=== PATIENT | female | born 1935 | race Caucasian/White ===

== ENCOUNTER → 2019-11-27 11:04 | Outpatient (CLI) | payer MEDICARE, SELFPAY ==
--- NOTE | ~2019-11-27 | MM_ITS ---
EXAMINATION: MM screening grant BI w arleen HISTORY: Screening mammogram TECHNIQUE: Craniocaudal and mediolateral oblique 3-D tomosynthesis images were obtained and synthetic 2-D images were generated. CAD analysis was submitted and interpreted. COMPARISON: 10/30/2018, 10/02/2017, 08/02/2016 bilateral digital screening mammogram examinations BREAST PARENCHYMAL COMPOSITION: There are scattered areas of fibroglandular density. FINDINGS: There is no evidence of suspicious mass, calcification, or architectural distortion to sugg est malignancy in either breast. There has been no suspicious interval change. IMPRESSION: 1. No mammographic evidence of malignancy. 2. Recommend routine screening mammography in one year. BI-RADS Category 1: Negative Reviewed, dictated and finalized at location A. BALANCER
== END ==
PROVIDERS: PCP Internal Medicine; Visit Provider Obstetrics & Gynecology Gynecology
DX: Z12.31 Encounter for screening mammogram for malignant neoplasm of breast (principal)
CPT/HCPCS: 77063; 77067

== ENCOUNTER → 2020-05-10 12:10 | Outpatient (CLI) | payer MEDICARE, SELFPAY ==
--- NOTE | ~2020-05-10 | XR_ITS ---
EXAMINATION: XR knee RT 3V DATE: 05/10/2020 12:35 INDICATION: Right knee pain. TECHNIQUE: 3 views of right knee were obtained. COMPARISON: Right knee radiographs 02/09/2013 FINDINGS: Bone alignment is normal. No fracture. There is moderate osteoarthritis of medial compartme nt and mild osteoarthritis of patellofemoral compartment. No knee joint effusion. IMPRESSION: 1. Moderate right knee osteoarthritis. Reviewed, dictated and finalized at location A.
== END ==
PROVIDERS: Visit Provider Nurse Practitioner
DX: M17.11 Unilateral primary osteoarthritis, right knee (principal)
CPT/HCPCS: 73562

== ENCOUNTER → 2020-06-09 11:19 | Outpatient (CLI) | payer MEDICARE, SELFPAY ==
--- NOTE | ~2020-06-09 | XR_ITS ---
EXAMINATION: XR chest 2V DATE: 06/09/2020 11:54 INDICATION: Pleurodynia. TECHNIQUE: Frontal and lateral views of the chest were obtained. COMPARISON: Chest 2 views 09/02/2018, CT abdomen and pelvis 07/13/2019 FINDINGS: There is no pneumonia, pleural effusion, or pneumothorax. The heart size is normal. There i s mild pectus excavatum. IMPRESSION: 1. No acute cardiopulmonary disease. Reviewed, dictated and finalized at location B.
== END ==
PROVIDERS: PCP Internal Medicine; Visit Provider Internal Medicine
DX: R07.81 Pleurodynia (principal)
CPT/HCPCS: 71046

== ENCOUNTER → 2021-04-04 10:37 | Outpatient (CLI) | payer MEDICARE, SELFPAY ==
--- NOTE | ~2021-04-04 | MM_ITS ---
EXAMINATION: MM screening grant BI w arleen HISTORY: Screening mammogram TECHNIQUE: Craniocaudal and mediolateral oblique 3-D tomosynthesis images were obtained and synthetic 2-D images were generated. CAD analysis was submitted and interpreted. COMPARISON: , 10/30/2018, 10/02/2017 bilateral digital screening mammogram examinations BREAST PARENCHYMAL COMPOSITION: There are scattered areas of fibroglandular density. FINDINGS: There is no evidence of suspicious mass, calcification, or architectural distortion to sugg est malignancy in either breast. There has been no suspicious interval change. IMPRESSION: 1. No mammographic evidence of malignancy. 2. Recommend routine screening mammography in one year. BI-RADS Category 1: Negative Reviewed, dictated and finalized at location A.
== END ==
PROVIDERS: PCP Internal Medicine; Visit Provider Obstetrics & Gynecology Gynecology
DX: Z12.31 Encounter for screening mammogram for malignant neoplasm of breast (principal)
CPT/HCPCS: 77063; 77067

== ENCOUNTER 2021-06-30 13:44 | Outpatient (CLI) | payer MEDICARE, SELFPAY ==
--- NOTE | 2021-06-30 14:01 | ECHO_ITS ---
Patient Info Name: Silva Castro Age: 85 years : 1935 Gender: Female Ht: 57 in Wt: 160 lbs BSA: 1.75 m2 HR: 68 bpm BP: 137 / 79 mmHg Heart Rhythm: Atrial Flutter Exam Date: 06/30/2021 2:47 PM Exam Location: [facility] Patient Status: Outpatient Admit Date: 06/30/2021 Staff Ordering Physician: Sidney Barraza DO Can Coverer: Cindy Le RDCS Attending Provider: Sidney Barraza DO Referring Physician: Madi BAUM; Exam Type: CA echo doppler color flow Study Info Indications I48.92 - UNSPECIFIED ATRIAL FLUTTER Complete two-dimensional, color flow and Doppler transthoracic echocardiogram is performed. Summary 1. Complete two-dimensional, color flow and Doppler transthoracic echocardiogram is performed. 2. Left ventricular chamber dimension is normal. 3. Left ventricular systolic function is normal, estimated at 60-65%. 4. The left ventricular diastolic function is normal. 5. E/e' 7 is not elevated. 6. Left atrial chamber dimension is moderately enlarged. 7. Right atrial chamber dimension is moderately enlarged. 8. There is mild aortic valve sclerosis. 9. There is mild mitral valve regurgitation. 10. There is mild to moderate tricuspid valve regurgitation. 11. No pulmonary hypertension, estimated pulmonary arterial systolic pressure is 31 mmHg. Left Ventricle E/e' 7 is not elevated. Left ventricular chamber dimension is normal. Left ventricular systolic function is normal, estimated at 60-65%. The left ventricular diastolic function is normal. Right Ventricle Right ventricular chamber dimension is normal. Right ventricular systolic function is normal. Left Atria Left atrial chamber dimension is moderately enlarged. Right Atria Right atrial chamber dimension is moderately enlarged. Aortic Valve The aortic valve is trileaflet. There is mild aortic valve sclerosis. There is no aortic valve stenosis. There is no aortic valve regurgitation. Pulmonic Valve There is no pulmonic regurgitation. Mitral Valve There is no mitral valve stenosis. There is mild mitral valve regurgitation. Tricuspid Valve There is mild to moderate tricuspid valve regurgitation. No pulmonary hypertension, estimated pulmonary arterial systolic pressure is 31 mmHg. Pericardium/Pleural There is no pericardial effusion. Inferior Vena Cava Normal inferior vena cava with >50% collapse upon inspiration consistent with normal right atrial pressure, 5 mmHg. Aorta The aortic root size at the sinus of Valsalva is normal. Left Ventricular Outflow Tract Name Value Normal LVOT 2D LVOT Diameter 1.9 cm LVOT Doppler LVOT Peak Gradient 1 mmHg LVOT Mean Gradient 1 mmHg LVOT VTI 14 cm LVOT VTI/AV VTI Ratio 0.6 LVOT Stroke Volume 41 ml Pulmonic Valve Name Value Normal RVOT
== END 2021-06-30 13:45 | disposition home or self-care (01) ==
LOC: ANHCARD 13:45
PROVIDERS: PCP Internal Medicine; Visit Provider Internal Medicine Cardiovascular Disease
DX: I48.92 Unspecified atrial flutter (principal); I34.0 Nonrheumatic mitral (valve) insufficiency; I35.1 Nonrheumatic aortic (valve) insufficiency; I36.1 Nonrheumatic tricuspid (valve) insufficiency
CPT/HCPCS: 93306

== ENCOUNTER 2021-09-27 13:44 | Emergency (ER) | payer MEDICARE, SELFPAY ==
--- NOTE | 2021-09-27 14:08 | ED.SKABFB ---
HPI - Skin/Abscess/Foreign Bdy General Chief complaint: Skin/Abscess/Foreign Body Stated complaint: pos skin abcess Time Seen by Provider: 09/27/21 13:59 Source: patient and RN notes reviewed Mode of arrival: ambulatory Limitations: no limitations History of Present Illness HPI narrative: Patient presents today complaining of a lump that she noticed on her rear end . She noticed the area 2 days ago when she was wiping after using the restroom. Denies pain, itching, blood or drainage. She has tried no interventions prior to arrival. She called her [employer], who states they do not work in this area. She has called her PCP who has not returned her phone call. States she has had something similar in the past and was given a course of antibiotics for it. MD complaint: abscess/boil Related Data Home Medications Medication Instructions Recorded Confirmed Calcium 600 + D(3) 08/22/19 09/12/21 ergocalciferol (vitamin D2) unit 08/22/19 09/12/21 magnesium 30 mg tablet 30 mg PO DAILY 06/12/21 09/12/21 Allergies Allergy/AdvReac Type Severity Reaction Status Date / Time Sulfa (Sulfonamide Allergy Unknown Unknown Verified 09/12/21 10:23 Antibiotics) tobramycin Allergy Unknown Unknown Verified 09/12/21 10:23 Review of Systems Review of Systems: CONSTITUTIONAL: Denies body aches, fever, chills, or sweats. EYES: Denies visual changes, redness, or discharge. ENT: Denies rhinorrhea, congestion, sore throat, or otalgia. CARDIOVASCULAR: Denies chest pain, palpitations, or edema. RESPIRATORY: Denies cough or dyspnea. GASTROINTESTINAL: Denies abdominal pain, nausea, vomiting, or diarrhea. GENITOURINARY: Denies dysuria or hematuria. SKIN: Denies rash, itching, or wounds. Possible abscess MUSCULOSKELETAL: Denies back pain, joint pain, or myalgia. NEUROLOGIC: Denies headache, numbness, tingling, or weakness. PSYCH: Denies depression or anxiety. [facility] Past Medical History Medical History Depression Diverticulitis Herniated disc Hypertension Urinary tract infection Surgical History Surgical History H/O hernia repair 1995 H/O: hysterectomy 1994 Family History Family History Sibling Family history of diabetes mellitus in first degree relative Family history of coronary artery disease Family history of malignant neoplasm of breast in first degree relative Family history of malignant neoplasm of kidney Patient's brother is Father Family history of coronary artery disease Mother Family history of coronary artery disease Social History Social History Smoking packs per day: 0.5 Smoking cigarettes per day: 10.0 Years smoked: 70 Smoking pack-years: 35.00 Smoking status: Never smoker Tobacco type: cigarettes Second hand tobacco smoke exposure: Yes Alcohol intake: never Comments At time of signature, I have reviewed and agree with nursing past medical, surgical, social and family history unless otherwise noted. Please see nursing chart for further information. There is no relevant family history pertinent to the presenting complaint Exam Narrative: GENERAL: Well-appearing, well-nourished, and in no acute distress. HEAD: Normocephalic, atraumatic. EYES: EOMI. No redness or drainage. Conjunctivae normal. ENT: Mucous membranes pink and moist. NECK: Normal AROM. CHEST: No respiratory distress. EXTREMITIES: Normal range of motion. No edema. SKIN: Warm, dry, no rash. Capillary refill normal. Subcentimeter firm round area to the left of the anus. No erythema, induration, tenderness with palpation, fluctuance noted. Patient had slight tenderness when I pinched the area between my fingers to measure it. NEURO: No focal deficits. Alert and oriented x3.
[2021-09-27 14:14] VITALS: BP 130/67; PULSE 82; RESP 16; TEMP 36.2; O2SAT 99
== END 2021-09-27 14:20 | disposition home or self-care (01) ==
PROVIDERS: Emergency Provider Nurse Practitioner; PCP Internal Medicine
DX: L02.31 Cutaneous abscess of buttock (principal); I10 Essential (primary) hypertension
CPT/HCPCS: 99213; G0463

== ENCOUNTER 2021-11-13 11:02 | Emergency (ER) | payer MEDICARE, SELFPAY ==
[2021-11-13 11:12] VITALS: BP 131/78; PULSE 86; RESP 16; TEMP 35.9; O2SAT 100
--- NOTE | 2021-11-13 11:13 | ED.FEMALEGU ---
HPI - Female Genitourinary General Chief complaint: Urogenital-Female Stated complaint: Urinary pain Time Seen by Provider: 11/13/21 11:25 Source: patient and RN notes reviewed Mode of arrival: ambulatory Limitations: no limitations History of Present Illness HPI Narrative: 86-year-old female presents concern for suprapubic pressure that started yesterday. She denies back pain, fever, nausea, vomiting, constipation. She reports normal bowel movement today. She denies body aches, chills and sweats. MD elicited complaint: UTI Related Data Home Medications Medication Instructions Recorded Confirmed Calcium 600 + D(3) 1 tab-cap PO DAILY 08/22/19 11/13/21 ergocalciferol (vitamin D2) 50,000 unit PO DAILY 08/22/19 11/13/21 magnesium 30 mg tablet 30 mg PO DAILY 06/12/21 11/13/21 rivaroxaban [Xarelto] 15 mg PO DAILY 11/13/21 11/13/21 Allergies Allergy/AdvReac Type Severity Reaction Status Date / Time Sulfa (Sulfonamide Allergy Unknown Unknown Verified 11/13/21 11:16 Antibiotics) tobramycin Allergy Unknown Unknown Verified 11/13/21 11:16 Review of Systems Review of Systems: CONSTITUTIONAL: Denies malaise, chills, sweats, or fever. CARDIOVASCULAR: Denies chest pain, palpitations, or edema. RESPIRATORY: Denies cough or dyspnea. GASTROINTESTINAL: Denies abdominal pain, nausea, vomiting, diarrhea GENITOURINARY: Reports suprapubic pressure. Denies dysuria, frequency, urgency, flank pain or hematuria. SKIN: Denies rash or itching. MUSCULOSKELETAL: Denies back pain or myalgia. All systems reviewed & are unremarkable except as noted in HPI and below [facility] Past Medical History Medical History Depression Diverticulitis Herniated disc Hypertension Urinary tract infection Surgical History Surgical History H/O hernia repair 1995 H/O: hysterectomy 1994 Family History Family History Sibling Family history of diabetes mellitus in first degree relative Family history of coronary artery disease Family history of malignant neoplasm of breast in first degree relative Family history of malignant neoplasm of kidney Patient's brother is Father Family history of coronary artery disease Mother Family history of coronary artery disease Social History Social History (Updated 10/31/21 @ 10:14 by Marleni Shetty) Smoking packs per day: 0.5 Smoking cigarettes per day: 10.0 Years smoked: 70 Smoking pack-years: 35.00 Smoking status: Current some day smoker Tobacco type: cigarettes Second hand tobacco smoke exposure: Yes Alcohol intake: never Comments At time of signature, agree with nursing past medical, surgical, social and family history. There is no relevant family history pertinent to the presenting complaint Exam Narrative: GENERAL: Well-appearing, well-nourished, and in no acute distress. HEAD: Normocephalic. EYES: PERRLA, conjunctivae clear. NECK: Supple. No lymphadenopathy CHEST: Clear to auscultation. No respiratory distress. HEART: Regular rate and rhythm. ABDOMEN: Soft, nontender upon palpation, nondistended, normal active bowel sounds, no palpable or pulsatile masses, no guarding. No CVA tenderness SKIN: Warm, dry, no rash. NEURO: Alert and oriented x3. PSYCH: Normal mood and affect Course Course Emergency Course: Patient is aware of diagnosis, understands and agrees to treatment plan. Anticipatory guidance given. Patient agrees to follow-up as directed and is aware of reasons to seek care at the emergency department. Portions of this record may have been created with voice recognition software Level of Care: Express Care Visit Vital Signs Vital signs: Reviewed. MDM - Female Genitourinary MDM Narrative Medical decision making narrative: Exam findings and UA show no acute concerns or changes;
== END 2021-11-13 11:43 | disposition home or self-care (01) ==
PROVIDERS: Emergency Provider Nurse Practitioner
DX: R10.30 Lower abdominal pain, unspecified (principal); I10 Essential (primary) hypertension; F17.210 Nicotine dependence, cigarettes, uncomplicated
CPT/HCPCS: 81003; 87077; 87086; 87186; 99213; G0463

== ENCOUNTER 2021-11-14 14:23 | Emergency (ER) | payer MEDICARE, SELFPAY ==
[2021-11-14] VITALS (19 sets, daily range): BP systolic 94–140; BP diastolic 28–87; PULSE 75–104; RESP 13–29; TEMP 36.4; O2SAT 71–100
--- NOTE | ~2021-11-14 | US_ITS ---
EXAMINATION: US abdomen limited EXAM DATE: 11/14/2021 18:18 INDICATION: RUQ pain Coughing TECHNIQUE: Multiple grayscale and Doppler images of the abdomen right upper quadrant were obtained (b y a technologist who performed the scan) and subsequently reviewed. There is no prior study for adrien nicholson. FINDINGS: The pancreatic head and body are normal in appearance. The pancreatic tail is not visualized. The l iver has normal echogenicity and contour. There are no focal liver lesions identified. There is no evidence of intrahepatic biliary duct dilation. Portal venous flow was seen in the hepatopedal, nor mal direction and has normal Doppler waveform. No right-sided hydronephrosis. Common bile duct measures 4 mm, which is normal. The gallbladder wall is normal in thickness, with ex pected amount of distention. No sonographic evidence of pericholecystic fluid. There is no cholelit hiases. Technologist performing exam reports patient did not demonstrate sonographic Edmonds's sign. Please note that this sign is less reliable in patients who have received pain medication. IMPRESSION: 1. Unremarkable abdominal ultrasound exam. Reviewed, dictated and finalized at location G. OFF WORKER
--- NOTE | ~2021-11-14 | XR_ITS ---
EXAMINATION: XR chest 2V EXAM DATE: 11/14/2021 17:58 INDICATION: SOB,Wheezing,Last Night,Hx Copd TECHNIQUE: Frontal and lateral projections of the chest obtained and reviewed. Comparison is made to prior examination from 06/09/2020. FINDINGS: No confluent consolidation, pneumothorax or pleural effusion suspected. Cardiomediastinal silhouette is normal. There are mild bony degenerative changes. There is no significant interval orozco ge. IMPRESSION: No acute cardiopulmonary findings. Reviewed, dictated and finalized at location G. TEST TECHNICIAN
--- NOTE | 2021-11-14 17:10 | ECG_ITS ---
Measurements Intervals [place] Rate: 81 P: [place]: 0 QRS: -49 QRSD: 97 T: 30 QT: 363 QTc: 424 Interpretive Statements ATRIAL FIBRILLATION LEFT AXIS DEVIATION DELAYED PRECORDIAL R/S TRANSITION BORDERLINE T WAVE ABNORMALITY- HIGH LATERAL LEADS BASELINE ARTIFACT- II, V6 ABNORMAL ECG Electronically Signed On 11-14-2021 20:24:36 TRAFFIC REPRESENTATIVE by Sidney Barraza D.O.
--- NOTE | 2021-11-14 18:38 | ED.SOB ---
HPI - SOB/Dyspnea General Chief Complaint: Shortness of Breath/Dyspnea Stated Complaint: shortness of breath Time Seen by Provider: 11/14/21 16:51 Source: patient Mode of arrival: EMS Limitations: clinical condition History of Present Illness HPI Narrative: 86-year-old female Here because of abdominal pain which she had yesterday evening, as well as some shortness of breath which she had when her son checked on her today, both of which are currently resolved Patient says that last night she had some soup and a sandwich and after that she started having pain in her upper abdomen and maybe a little in her lower chest She cannot really localize it very well indicating a range that basically extended from the left flank to the right flank but was above the umbilicus anyways, no vomiting or diarrhea She has not had symptoms like that before, and it resolved overnight more or less while she slept and has not come back today Her son visited her today and he thought she was wheezing and at least according to the notes EMS transported to the hospital and he concurred and treated her with a nebulizer and she is wheeze free now She says there is no fever, and really no chest pain accompanying this Supposed to have h/o COPD, but not on any meds for that Related Data Home Medications Medication Instructions Recorded Confirmed Calcium 600 + D(3) 1 tab-cap PO DAILY 08/22/19 11/13/21 ergocalciferol (vitamin D2) 50,000 unit PO DAILY 08/22/19 11/13/21 magnesium 30 mg tablet 30 mg PO DAILY 06/12/21 11/13/21 rivaroxaban [Xarelto] 15 mg PO DAILY 11/13/21 11/13/21 Allergies Allergy/AdvReac Type Severity Reaction Status Date / Time Sulfa (Sulfonamide Allergy Unknown Unknown Verified 11/13/21 11:16 Antibiotics) tobramycin Allergy Unknown Unknown Verified 11/13/21 11:16 Review of Systems Review of Systems: All systems reviewed & are unremarkable except as noted in HPI and below Constitutional: Constitutional: Reports no additional constitutional complaints, Denies chills, Reports fatigue, Denies fever(s), Denies headache(s) and Reports weakness Eyes: Eyes: Reports no additional eye complaints and Denies change in vision ENT: Denies headache(s) and Denies sore throat Cardiovascular: Cardiovascular: Denies chest pain and Denies dyspnea Respiratory: Respiratory: Denies cough, Denies dyspnea and Reports wheezing Gastrointestinal: Gastrointestinal: Reports abdominal pain, Denies diarrhea and Denies vomiting Genitourinary: Genitourinary: Denies urinary frequency and Denies dysuria Musculoskeletal: Musculoskeletal: Denies deformity, Denies arthralgias, Denies joint swelling and Denies numbness Integumentary/Breasts: Skin/Breast: Denies rash and Denies wounds Neurologic: Denies headache(s), Denies focal weakness and Denies numbness Psychiatric: Psychiatric: Reports no additional psychiatric complaints Endocrine: Endocrine: Reports no additional endocrine complaints Hematologic/Lymphatic: Hematologic/Lymphatic: Reports no additional hematologic/lymphatic complaints Allergic/Immunologic: Allergic/Immunologic: Reports no additional allergic/immunologic complaints PMF Past Medical History Medical History Depression Diverticulitis Herniated disc Hypertension Urinary tract infection Surgical History Surgical History H/O hernia repair 1995 H/O: hysterectomy 1994 Family History Family History Sibling Family history of diabetes mellitus in first degree relative Family history of coronary artery disease Family history of malignant neoplasm of breast in first degree relative Family history of malignant neoplasm of kidney Patient's brother is Father Family history of coronary artery disease Mother Family history of coronary artery disease Social His
[2021-11-14 18:39] LABS: Basophils Absolute Auto 0.1 K/mm3 (0.0-0.1); Basophils Percent Auto 0.6 % (0.2-1.2); Eosinophils Percent Auto 0.1 % (0-4.4); Hematocrit 38.2 % (37.0-47.0); Hemoglobin 12.5 g/dL (12.0-15.0); Immature Granulocyte Percent A 0.7 % (0-0.5); Lymphocytes Absolute Auto 0.46 K/mm3 (0.9-3.2); Lymphocytes Percent Auto 3.1 % (18.3-44.2); Mean Corpuscular HGB Conc 32.7 g/dl (32-36); Mean Corpuscular Hemoglobin 33.2 pg (26-34); Mean Corpuscular Volume 101.6 fl (80-100); Mean Platelet Volume 9.4 fl (7.4-10.4); Monocytes Absolute Auto 0.9 K/mm3 (0.1-0.6); Monocytes Percent Auto 5.9 % (2.6-8.5); Neutrophils Absolute Auto 13.1 K/mm3 (1.3-6.7); Neutrophils Percent Auto 89.6 % (45.5-73.1); Platelet Count Result 151 k/mm3 (150-375); Red Blood Count 3.76 M/mm3 (4.2-5.4); Red Cell Distribution Width 13.2 % (11.5-14.5); White Blood Count 14.6 K/mm3 (4.5-10.0)
[2021-11-14 18:52] LABS: Anion Gap 2 mmol/L (8-16); Blood Urea Nitrogen 17 mg/dL (7-17); Carbon Dioxide 31 mmol/L (22-30); Chloride 105 mmol/L (98-107); Estimated Glomerular Filt Rate > 60; Glucose 117 mg/dL (65-110); Lactate Dehydrogenase 831 U/L (313-618); Potassium 4.1 mmol/L (3.4-5.0); Sodium 138 mmol/L (137-145)
[2021-11-14 18:53] LABS: Alanine Aminotransferase 130 U/L (4-35); Albumin Level 4.1 g/dL (3.5-5.1); Alkaline Phosphatase 122 U/L (38-126); Aspartate Amino Transferase 166 U/L (14-36); Bilirubin,Total 1.1 mg/dL (0.2-1.3); Lipase 21 U/L (23-300)
[2021-11-14 19:04] LABS: NT Pro B Type Natriuretic Pept 2720 pg/mL (5-100); Troponin I 0.015 ng/mL (0.000-0.034)
[2021-11-14 19:15] LABS: SARS-CoV-2 RNA PCR Negative
--- NOTE | 2021-11-14 21:01 | PC.NURSE ---
Attempted to assist patient to get centered in bed, pt urinated on self and floor. RN and tech cleaned patient up and got her comfortable in bed and repositioned. Pt reconnected to monitors. Son updated. Pt wheezing, SpO2 97% on RA. HOB raised. Awaiting further POC. Call light in reach.
[2021-11-14] MEDS: FUROSEMIDE INJ 40 MG/4 ML VIAL IV PUSH (21:34)
[2021-11-14 21:49] LABS: Troponin I 0.019 ng/mL (0.000-0.034)
[2021-11-14] MEDS: ALBUTEROL SULFATE (*SP) INHALER 4 PUFF INHALATION (21:59)
[2021-11-14] MEDS: DOXYCYCLINE IV 100 MG in SODIUM CHLORIDE 0.9% IV 100 ML IVPB (22:40)
--- NOTE | 2021-11-14 23:38 | PC.NURSE ---
Assumed care of pt at time of discharge. Told by Carleen RN at bedside report pt is not wanting to go home, feels too week and family agrees. Pt laying in urine, lines changed, pt states she is unable to hold her urine, per Carleen - several episodes of saturating bed after lasix. Pt states If it takes two of you to help me just go pee, how am I supposed to take care of myself? EDP notified who states pt may need NH placement if unable to care for self. Discussed talking w/ son via pts phone. iron molder helper notified. IV fluids were not infusing properly, Carleen fixed IV and fluids infusing at this time. Delayed start.
== END 2021-11-15 00:14 | disposition home or self-care (01) ==
PROVIDERS: Emergency Provider Emergency Medicine
DX: J40 Bronchitis, not specified as acute or chronic (principal); Z20.822 Contact with and (suspected) exposure to COVID-19; I10 Essential (primary) hypertension; F32.A Depression, unspecified; Z79.01 Long term (current) use of anticoagulants; F17.210 Nicotine dependence, cigarettes, uncomplicated; Z87.440 Personal history of urinary (tract) infections; R94.31 Abnormal electrocardiogram [ECG] [EKG]; I48.91 Unspecified atrial fibrillation
CPT/HCPCS: 36415; 71046; 76705; 80048; 80076; 82728; 83615; 83690; 83880; 84484; 85025; 93005; 96365; 96375; 99284; C9803; J1940; U0003; U0005

== ENCOUNTER 2022-11-12 22:18 | Emergency (ER) | payer MEDICARE, SELFPAY ==
[2022-11-12] VITALS (13 sets, daily range): BP systolic 108–156; BP diastolic 49–84; PULSE 60; RESP 18; TEMP 35.4; O2SAT 94–99
--- NOTE | ~2022-11-12 | CT_ITS ---
EXAMINATION: CT abdomen pelvis w con DATE: 11/12/2022 23:07 INDICATION: Right lower quadrant abdominal pain. Vomiting. TECHNIQUE: Computed tomography (CT) of the abdomen and pelvis was performed with 100 mL Omnipaque 350 intravenous contrast. Automated exposure control and iterative reconstruction technique were employe d. The dose-length product was 1115.21 mGy-cm. COMPARISON: CT abdomen and pelvis 07/13/2019 FINDINGS: The visualized portions of the lung bases demonstrate mild atelectasis. There is a 3 mm nod ule in right middle lobe, likely benign. Cardiomegaly is noted. No pericardial effusion. There is mil d pectus excavatum. There is a small sliding hiatal hernia. There is a 7 mm cyst in the liver. The ga llbladder and spleen are normal. The pancreatic duct is dilated to 6 mm, likely chronic pancreatitis. The adrenal glands are normal. There are cysts in the kidneys measuring up to 12 mm on the right. Th ere are changes of ventral hernia repair. There is diverticulosis of the colon without evidence of di verticulitis. There are mildly dilated loops of small bowel in right abdomen with mesenteric edema an d two transition points in close proximity, consistent with closed loop small bowel obstruction. Smal l bowel is also mildly dilated proximal to this region. There is diverticulosis of the colon without evidence of diverticulitis. There are no pathologically enlarged lymph nodes. There is no free intrap eritoneal fluid. There is lumbar dextroscoliosis and severe spondylosis. IMPRESSION: 1. Closed-loop small bowel obstruction in right abdomen. Reviewed, dictated and finalized at location A. TAMER
--- NOTE | 2022-11-12 22:37 | ED.GENADULT ---
HPI - General Adult General Chief complaint: Nausea/Vomiting/Diarrhea Stated complaint: abd pain History of Present Illness HPI narrative: Patient is an 87-year-old female presenting with abdominal pain. Patient states that she was able to eat dinner tonight and then she laid down for bed. She was awoken with severe right lower quadrant pain as well as nausea and vomiting. Patient states that she has had diverticulitis in the past and this feels similarly. Denies diarrhea or constipation. No chest pain, shortness of breath, cough, headache, fevers, dysuria, hematuria, leg swelling. Related Data Home Medications Medication Instructions Recorded Confirmed Calcium 600 + D(3) 1 tab-cap PO DAILY 08/22/19 09/19/22 ergocalciferol (vitamin D2) 1,250 50,000 unit PO DAILY 08/22/19 09/19/22 mcg (50,000 unit) capsule magnesium 30 mg tablet 30 mg PO DAILY 06/12/21 09/19/22 Allergies Allergy/AdvReac Type Severity Reaction Status Date / Time Sulfa (Sulfonamide Allergy Unknown Unknown Verified 09/19/22 10:28 Antibiotics) tobramycin Allergy Unknown Unknown Verified 09/19/22 10:28 Review of Systems Review of Systems: All systems reviewed & are unremarkable except as noted in HPI and below PMFSH Past Medical History Medical History Depression Diverticulitis Herniated disc Hypertension Urinary tract infection Surgical History Surgical History H/O hernia repair 1995 H/O: hysterectomy 1994 Family History Family History Sibling Family history of diabetes mellitus in first degree relative Family history of coronary artery disease Family history of malignant neoplasm of breast in first degree relative Family history of malignant neoplasm of kidney Patient's brother is Father Family history of coronary artery disease Mother Family history of coronary artery disease Social History Social History Smoking packs per day: 0.5 Smoking cigarettes per day: 10.0 Years smoked: 70 Smoking pack-years: 35.00 Smoking status: Never smoker Tobacco type: cigarettes Second hand tobacco smoke exposure: Yes Alcohol intake: never Substance use: never Substance use type: does not use Exam Narrative: GENERAL: Elderly female laying in bed in no acute distress, nontoxic appearance HEAD: Normocephalic, atraumatic. EYES: PERRLA and EOMI. ENT: Nares clear, no rhinorrhea or epistaxis. Mucous membranes moist. NECK: Supple. CHEST: Clear to auscultation. No respiratory distress. HEART: Regular rate and rhythm. No murmur heard. Normal peripheral pulses. ABDOMEN: Soft, tender in right lower quadrant without guarding or rebound EXTREMITIES: Normal range of motion. No edema. SKIN: Warm, dry, no rash. NEURO: No focal deficits. Alert and oriented x3. PSYCH: Normal mood and affect. Course Course Emergency Course: Radiology over read CT abdomen pelvis has closed-loop small bowel obstruction. Patient was contacted regarding this finding. She states that currently she feels fine. She states that she will call her son to see if he can bring her back to the ER. Day team is aware that patient has been advised to return to the ER. Vital Signs Vital signs: Vital Signs Temperature 95.7 F L 11/12/22 22:14 Pulse Rate 60 11/12/22 22:14 Respiratory Rate 18 11/12/22 22:14 Blood Pressure 156/49 H 11/12/22 22:14 Pulse Oximetry 96 11/12/22 22:14 Oxygen Delivery Room Air 11/12/22 22:14 Temperature 95.7 F L 11/12/22 22:14 Pulse Rate 57 L 11/13/22 03:30 Respiratory Rate 15 11/13/22 03:45 Blood Pressure 106/42 L 11/13/22 01:31 Pulse Oximetry 100 11/13/22 02:15 Oxygen Delivery Room Air 11/12/22 22:14 Medical Decision Making [facility] Narrative Medical de
[2022-11-12 22:39] LABS: Basophils Absolute Auto 0.1 K/mm3 (0.0-0.1); Basophils Percent Auto 0.5 % (0.2-1.2); Eosinophils Absolute Auto 0.1 K/mm3 (0-0.3); Eosinophils Percent Auto 0.8 % (0-4.4); Hematocrit 40.8 % (37.0-47.0); Hemoglobin 12.9 g/dL (12.0-15.0); Immature Granulocyte Absolute 0.03 K/mm3 (0.00-0.031); Immature Granulocyte Percent A 0.3 % (0-0.5); Lymphocytes Absolute Auto 1.92 K/mm3 (0.9-3.2); Lymphocytes Percent Auto 18.4 % (18.3-44.2); Mean Corpuscular HGB Conc 31.6 g/dl (32-36); Mean Corpuscular Hemoglobin 31.9 pg (26-34); Mean Corpuscular Volume 100.7 fl (80-100); Mean Platelet Volume 9.7 fl (7.4-10.4); Monocytes Absolute Auto 0.8 K/mm3 (0.1-0.6); Monocytes Percent Auto 7.3 % (2.6-8.5); Neutrophils Absolute Auto 7.6 K/mm3 (1.3-6.7); Neutrophils Percent Auto 72.7 % (45.5-73.1); Platelet Count Result 165 k/mm3 (150-375); Red Blood Count 4.05 M/mm3 (4.2-5.4); Red Cell Distribution Width 13.1 % (11.5-14.5); White Blood Count 10.4 K/mm3 (4.5-10.0)
[2022-11-12 22:50] LABS: Alanine Aminotransferase 25 U/L (6-35); Albumin Level 3.9 g/dL (3.5-5.1); Alkaline Phosphatase 79 U/L (38-126); Anion Gap 3 mmol/L (8-16); Aspartate Amino Transferase 31 U/L (14-36); Bilirubin,Total 0.3 mg/dL (0.2-1.3); Blood Urea Nitrogen 21 mg/dL (7-17); Carbon Dioxide 33 mmol/L (22-30); Chloride 107 mmol/L (98-107); Estimated Glomerular Filt Rate > 60; Glucose 140 mg/dL (65-110); Lipase 54 U/L (23-300); Potassium 4.5 mmol/L (3.4-5.0); Sodium 143 mmol/L (137-145)
[2022-11-12] MEDS: SODIUM CHLORIDE 0.9% IV 1,000 ML 999 ML IV CONT (23:14)
[2022-11-12] MEDS: MORPHINE SULFATE (*CRX) 4 MG/ML INJ IV PUSH (23:14)
[2022-11-12] MEDS: ONDANSETRON INJ 4 MG/2 ML VIAL IV PUSH (23:14)
[2022-11-13] VITALS (26 sets, daily range): BP systolic 106–131; BP diastolic 42–74; PULSE 54–88; RESP 11–35; O2SAT 95–100
[2022-11-13 01:43] LABS: Appearance Urine Clear (Clear); Bilirubin Urine Negative (Negative); Blood Urine Trace-intact (Negative); Color Urine Yellow (Yellow); Glucose Urine UA Negative (Negative); Ketones Urine Negative (Negative); Leukocyte Esterase Ur 1+ LEU/UL (Negative); Nitrate Urine Positive (Negative); Protein Urine Negative (Negative); Specific Grav Ur 1.015 (1.001-1.035); Urobilinogen Urine 0.2 mg/dL (<2.0); pH Urine 6.5 (5.0-9.0)
[2022-11-13 01:47] LABS: Bacteria Urine 1+ /hpf; Mucus Urine Rare /lpf; Squamous Epithelial Cell Urine Rare /hpf (Few); WBC Urine 51-75 /hpf
[2022-11-13 01:48] LABS: Add Urine Microscopic? YES
--- NOTE | 2022-11-13 03:12 | PC.NURSE ---
Contacted patient's son and patient's son going to come pick patient up from the ER.
[2022-11-13] MEDS: ONDANSETRON HCL ODT 4 MG TABLET PO (04:03)
== END 2022-11-13 04:25 | disposition home or self-care (01) ==
PROVIDERS: Emergency Provider Emergency Medicine
DX: N39.0 Urinary tract infection, site not specified (principal); K52.9 Noninfective gastroenteritis and colitis, unspecified; K56.699 Other intestinal obstruction unspecified as to partial versus complete obstruction; I10 Essential (primary) hypertension; Z90.710 Acquired absence of both cervix and uterus; F17.210 Nicotine dependence, cigarettes, uncomplicated; Z79.01 Long term (current) use of anticoagulants
CPT/HCPCS: 36415; 74177; 80053; 81001; 83690; 85025; 87077; 87086; 87186; 96361; 96365; 96375; 99284; A9270; J0696; J2270; J2405; J7030; Q9967

== ENCOUNTER 2023-05-19 01:05 | Emergency (ER) | payer MEDICARE, SELFPAY | END 2023-05-19 13:40 | disposition home or self-care (01) | LOC: EXPGOSH 05-22 15:35 | PROVIDERS: Emergency Provider Nurse Practitioner Family | DX: R10.9 Unspecified abdominal pain (principal); I10 Essential (primary) hypertension; I48.91 Unspecified atrial fibrillation; F32.A Depression, unspecified | CPT/HCPCS: 81003; 87077; 87086; 87147; 87186; 99213; G0463 ==

== ENCOUNTER 2023-07-05 15:10 | Inpatient (IN) | payer MEDICARE, SELFPAY ==
[2023-07-05] VITALS (25 sets, daily range): BP systolic 100–127; BP diastolic 44–101; PULSE 67–84; RESP 14–28; TEMP 36.6–37.3; O2SAT 94–99
--- NOTE | ~2023-07-05 | CT_ITS ---
EXAMINATION: CT abdomen pelvis wo con DATE: 07/05/2023 17:36 INDICATION: Hematuria. Frequent urinary tract infections. Covid-positive. TECHNIQUE: Computed tomography (CT) of the abdomen and pelvis was performed without intravenous contr ast. Automated exposure control and iterative reconstruction technique were employed. Exam dose: 956 .48 mGy-cm total exam DLP. COMPARISON: 11/12/2022 CT abdomen pelvis FINDINGS: Mild dependent right lower lobe infiltrate and/or atelectasis. Calcified middle lobe granul bijan. No pericardial or pleural effusion. Approximately 7 mm probable hepatic dome cyst. Normal splenic siz e. No pancreatic mass lesion or ductal dilatation. The gallbladder is present. No pericholecystic flu id or fat stranding. No bile duct dilatation. Normal morphology of the adrenal glands. No renal mass lesion or urinary tract calculus or hydrourete ronephrosis. The urinary bladder is unremarkable. Status post hysterectomy. There is atherosclerotic calcification and tortuosity of the abdominal aorta but no abdominal aortic aneurysm. No intraperitoneal or retroperitoneal or pelvic mass lesion or adenopathy or ascites. Colon diverticulosis; no CT evidence of diverticulitis. No bowel obstruction or intraperitoneal free air is detected. Anterior abdominal wall mesh repair. No suspicious osteolytic or osteoblastic lesions. Degenerative changes of the thoracic and particularly the lumbar spine. There is fusion at L3-L5 disc spaces and severe degenerative disc disease at L1-2 and L2-3. IMPRESSION: No significant urinary tract abnormality is noted on this limited noncontrast examinatio n. Diverticulosis of the colon; no CT evidence of diverticulitis Reviewed, dictated and finalized at Location A. Reviewed, dictated and finalized at location A. IMPRESSION: No significant urinary tract abnormality is noted on this limited noncontrast examination. Diverticulosis of the colon; no CT evidence of diverticulitis
--- NOTE | ~2023-07-05 | CT_ITS ---
EXAMINATION: CT brain wo con INDICATION: Weakness and confusion COMPARISON: 06/11/2011 TECHNIQUE: Standard unenhanced head CT. The dose-length product (DLP) was 681.00 mGy-cm. The mA was a djusted according to patient size. Iterative reconstruction technique was employed. FINDINGS: No acute intraparenchymal hemorrhage. No evidence of mass lesion. No evidence of acute infa rction. There is moderate periventricular and subcortical hypodensity probably related to small vesse l ischemic disease. There is moderate prominence of the sulci and ventricles related to cerebral atro phy. Intracranial calcified cerebral atherosclerosis is noted. No extra-axial collections. No mass ef fect or midline shift. Changes in the globes are likely from ocular lens surgery. There is a small ri ght mastoid effusion. There is mild mucosal thickening of the paranasal sinuses. IMPRESSION: 1. No acute intracranial abnormality. 2. Age related findings. Reviewed, dictated and finalized at location B.
--- NOTE | ~2023-07-05 | XR_ITS ---
EXAMINATION: XR chest 2V DATE: 07/05/2023 15:37 INDICATION: Shortness of breath, COVID 19 positive TECHNIQUE: Frontal and lateral views of the chest are obtained COMPARISON: 11/14/2021 FINDINGS: The lungs are free of acute opacities. No pleural effusion or pneumothorax. The cardiomedia stinal silhouette is normal. There is severe thoracic spondylosis. IMPRESSION: 1. No acute cardiopulmonary abnormality. Reviewed, dictated and finalized at location B.
--- NOTE | 2023-07-05 15:15 | ED.WEAKNESS ---
HPI - Weakness General Chief complaint: Weakness Stated complaint: WEAK/ COVID+ Time Seen by Provider: 07/05/23 15:14 History of Present Illness HPI Narrative: Patient is an 87-year-old female sent in from facility for generalized weakness. She reportedly was tested COVID positive at her facility today. She has been more weak than usual over the last day. Patient has 0 complaints and has no idea why she is here in the emergency department. Under review of systems she denies chest pain, cough, shortness of breath, abdominal pain, leg swelling, fever, chills. Per EMS, she has been having some diarrhea at her facility. Related Data Home Medications Medication Instructions Recorded Confirmed Calcium 600 + D(3) 1 tab-cap PO DAILY 08/22/19 07/03/23 magnesium 30 mg tablet 30 mg PO DAILY 06/12/21 07/03/23 Allergies Allergy/AdvReac Type Severity Reaction Status Date / Time Sulfa (Sulfonamide Allergy Unknown Unknown Verified 07/03/23 13:28 Antibiotics) tobramycin Allergy Unknown Unknown Verified 07/03/23 13:28 Review of Systems Review of Systems: All systems reviewed & are unremarkable except as noted in HPI and below PMFSH Past Medical History Medical History Depression Diverticulitis Herniated disc Hypertension Urinary tract infection Surgical History Surgical History H/O hernia repair 1995 H/O: hysterectomy 1994 Family History Family History Sibling Family history of diabetes mellitus in first degree relative Family history of coronary artery disease Family history of malignant neoplasm of breast in first degree relative Family history of malignant neoplasm of kidney Patient's brother is Father Family history of coronary artery disease Mother Family history of coronary artery disease Social History Social History Smoking packs per day: 0.5 Smoking cigarettes per day: 10.0 Years smoked: 70 Smoking pack-years: 35.00 Smoking status: Current every day smoker Tobacco type: cigarettes Second hand tobacco smoke exposure: Yes Alcohol intake: never Substance use: never Substance use type: does not use Lack of Transportation: No Lack of Food: Never True Current Housing: I Have Housing Concerned About Future Housing: No Difficulty Paying Gas/Electric Bills: No Difficulty Paying for Meds: No Currently Unemployed: No Education: High School Diploma/GED Difficulty w/ Childcare or Family Care: No Exam Narrative: GENERAL: Well-appearing, well-nourished, and in no acute distress. HEAD: Normocephalic, atraumatic. EYES: PERRLA and EOMI. ENT: Nares clear. Mucous membranes moist. NECK: Supple. CHEST: Clear to auscultation. No respiratory distress. HEART: Regular rate and rhythm. Normal peripheral pulses. ABDOMEN: Soft, nontender, nondistended. EXTREMITIES: Normal range of motion. No edema. SKIN: Warm, dry, no rash. NEURO: No focal deficits. Alert and oriented x2 PSYCH: Normal mood and affect. Course Course Emergency Course: Chart review performed. Patient had office visit with Lucas Valdes PA-C. She was there for a follow up of HTN. They note history of HTN, diverticulitis, depression. Patient seen evaluated, in no acute distress. Poor historian, history obtained from EMS largely is patient has noyola negative responses to review of systems questions. Will do broad infectious workup. CT head given weakness and confusion. Repeat covid ordered. Imaging reviewed, grossly unremarkable. CBC normal. Electrolytes normal. CRP 2.3, troponin is normal. BNP elevated at 893. UA shows 21-50 white blood cells, 3+ leukocyte esterase, 4+ bacteria. She does have a significant amount of blood in her urine. This could b
--- NOTE | 2023-07-05 15:19 | ECG_ITS ---
Measurements Intervals [place] Rate: 75 P: MA: 0 QRS: -25 QRSD: 91 T: 8 QT: 300 QTc: 337 Interpretive Statements ATRIAL FIBRILLATION DELAYED PRECORDIAL R/S TRANSITION NONSPECIFIC T-WAVE ABNORMALITY- ANTEROLAT/INF LEADS BASELINE ARTIFACT- I, II, III, AVR, AVL, AVF, V1-V2 ABNORMAL ECG COMPARED TO ECG 11/14/2021 17:33:24 NO SIGNIFICANT CHANGES Electronically Signed On 07-05-2023 15:43:11 CDT by Sidney Barraza D.O.
[2023-07-05 15:29] LABS: Basophils Percent Auto 0.3 % (0.2-1.2); Hematocrit 41.3 % (37.0-47.0); Immature Granulocyte Absolute 0.02 K/mm3 (0.00-0.031); Immature Granulocyte Percent A 0.3 % (0-0.5); Lymphocytes Percent Auto 10.9 % (18.3-44.2); Mean Corpuscular HGB Conc 31.5 g/dl (32-36); Mean Corpuscular Hemoglobin 31.9 pg (26-34); Mean Corpuscular Volume 101.5 fl (80-100); Mean Platelet Volume 9.7 fl (7.4-10.4); Monocytes Percent Auto 14.8 % (2.6-8.5); Neutrophils Absolute Auto 4.7 K/mm3 (1.3-6.7); Neutrophils Percent Auto 73.7 % (45.5-73.1); Platelet Count Result 127 k/mm3 (150-375); Red Blood Count 4.07 M/mm3 (4.2-5.4); Red Cell Distribution Width 14.1 % (11.5-14.5); White Blood Count 6.4 K/mm3 (4.5-10.0)
[2023-07-05 15:40] LABS: Alanine Aminotransferase 20 U/L (6-35); Albumin Level 4.2 g/dL (3.5-5.1); Alkaline Phosphatase 66 U/L (38-126); Anion Gap 10 mmol/L (8-16); Aspartate Amino Transferase 32 U/L (14-36); Bilirubin,Total 0.7 mg/dL (0.2-1.3); Blood Urea Nitrogen 19 mg/dL (7-17); Calcium 8.5 mg/dL (8.4-10.2); Carbon Dioxide 25 mmol/L (22-30); Chloride 100 mmol/L (98-107); Estimated CRCL calculation 44 ml/min; Estimated Glomerular Filt Rate > 60; Glucose 89 mg/dL (65-110); Potassium 4.3 mmol/L (3.4-5.0); Sodium 135 mmol/L (137-145)
[2023-07-05 16:13] LABS: CRP 2.3 mg/dL (<1.0); Magnesium 2.2 mg/dL (1.6-2.3)
[2023-07-05 16:17] LABS: SARS-CoV-2 RNA PCR Positive (Negative)
[2023-07-05 16:22] LABS: NT Pro B Type Natriuretic Pept 893 pg/mL (19.9-100); Troponin I 0.013 ng/mL (0.000-0.034)
[2023-07-05 16:42] LABS: Appearance Urine Turbid (Clear); Bacteria Urine 4+ /hpf; Bilirubin Urine 1+ (Negative); Blood Urine 3+ (Negative); Color Urine Dark Yellow (Yellow); Glucose Urine UA Negative (Negative); Hyaline Casts Urine Present /lpf; Ketones Urine 1+ mg/dL (Negative); Leukocyte Esterase Ur 3+ LEU/UL (Negative); Mucus Urine Present /lpf; Need Manual Microscopic Reviewed; Nitrate Urine Negative (Negative); Non Pathogenic Casts 0-2; Protein Urine 1+ mg/dL (Negative); RBC Urine >100 /hpf (0-2); Squamous Epithelial Cell Urine Many /hpf (Few); Triple Phosphate Crystal Urine Present /hpf; WBC Urine 21-50 /hpf
[2023-07-05 16:54] LABS: Add Urine Microscopic? YES
--- NOTE | 2023-07-05 21:05 | PC.NURSE ---
updated family member Sumit @2104 on pt status with pt permission.
--- NOTE | 2023-07-05 22:05 | ADMGEN ---
This patient, Silva Castro, was admitted to [facility] Surg Room 314-01 at 2205. Patient/family oriented to hospital policies and general routines including ID bracelet, bed and alarms, visiting hours, pain management, procedures, bathroom and other care routines, personal items, smoking policy, room service/diet, and visiting hours. Information on how to activate the Rapid Response Team has been discussed. Patient/Family are encouraged to report perceived risks to care and to ask questions if they do not understand what they are told or what they should do.
--- NOTE | 2023-07-06 01:18 | PM.IMHP ---
H&P: HPI History of Present Illness Date/Time: 07/06/23 01:18 Chief Complaint: [facility] with [facility] weakness Narrative: Our patient is an 87 years old female with chronic medical issues who is a [facility] resident. She has been observed to be weak and tired since yesterday at the facility. Patient sent to the ER for evaluation. Workup was done which showed findings consistent with a UTI. She was COVID positive as well but she is not requiring any oxygen. She was treated in the ER, feeling a little better. We will admit her for IV antibiotics for UTI. Review of Systems Review of Systems: she denies any chest pain, palpitations, fever rigor chills, nausea vomiting cough or loss of consciousness. All systems reviewed & are unremarkable except as noted in HPI and below PMFSH Past Medical History Medical History Depression Diverticulitis Herniated disc Hypertension Urinary tract infection Surgical History Surgical History H/O hernia repair 1995 H/O: hysterectomy 1994 Family History Family History Sibling Family history of diabetes mellitus in first degree relative Family history of coronary artery disease Family history of malignant neoplasm of breast in first degree relative Family history of malignant neoplasm of kidney Patient's brother is Father Family history of coronary artery disease Mother Family history of coronary artery disease Social History Social History Smoking packs per day: 0.5 Smoking cigarettes per day: 10.0 Years smoked: 70 Smoking pack-years: 35.00 Smoking status: Current every day smoker Tobacco type: cigarettes Second hand tobacco smoke exposure: Yes Alcohol intake: never Substance use: never Substance use type: does not use Lack of Transportation: No Lack of Food: Never True Current Housing: I Have Housing Concerned About Future Housing: No Difficulty Paying Gas/Electric Bills: No Difficulty Paying for Meds: No Currently Unemployed: No Education: High School Diploma/GED Difficulty w/ Childcare or Family Care: No Spiritual care concerns: No Meds Home Medications and Allergies Home Medications Medication Instructions Recorded Confirmed Type Calcium 600 + D(3) 1 tab-cap PO DAILY 08/22/19 07/05/23 History magnesium 30 mg tablet 30 mg PO DAILY 06/12/21 07/05/23 History rivaroxaban 15 mg tablet (Xarelto) See Rx Instructions .Route 05/21/23 07/05/23 Rx .COMPLEX #30 tabs bupropion HCl 150 mg tablet,12 hr 150 mg PO BID #180 tabs 07/03/23 07/05/23 Rx sustained-release losartan 50 mg tablet 50 mg PO DAILY #90 tabs 07/03/23 07/05/23 Rx hydrochlorothiazide 12.5 mg tablet 12.5 mg PO DAILY 07/05/23 07/05/23 History Allergies Allergy/AdvReac Type Severity Reaction Status Date / Time Sulfa (Sulfonamide Allergy Unknown Unknown Verified 07/03/23 13:28 Antibiotics) tobramycin Allergy Unknown Unknown Verified 07/03/23 13:28 Vital Signs Vital Signs - 24 hr 07/05/23 15:11 07/05/23 18:53 07/05/23 15:40 Temperature 37.3 C Pulse Rate 72 71 73 Respiratory Rate 20 18 17 Blood Pressure 117/101 H 120/80 127/44 L Pulse Oximetry 97 98 96 Oxygen Delivery Room Air 07/05/23 16:15 07/05/23 17:00 07/05/23 18:15 Temperature Pulse Rate 73 83 76 Respiratory Rate 14 19 21 H Blood Pressure Pulse Oximetry 98 97 99 Oxygen Delivery 07/05/23 18:37 07/05/23 18:45 07/05/23 19:36 Temperature 36.7 C Pulse Rate 84 79 71 Respiratory Rate 20 16 26 H Blood Pressure Pulse Oximetry 99 99 97 Oxygen Delivery 07/05/23 19:00 07/05/23 19:15 07/05/23 19:16 Temperature Pulse Rate 78 71 73 Respiratory Rate 16 22 H 21 H Blood Pressure 100/76 Puls
[2023-07-06] MEDS: SODIUM CHLORIDE 0.9% IV 1,000 ML 75 ML IV CONT ×2 (02:14→18:17)
[2023-07-06 04:00] VITALS: BP 110/72; PULSE 84; RESP 18; TEMP 36.9; O2SAT 95
[2023-07-06 05:51] LABS: Hematocrit 39.5 % (37.0-47.0); Hemoglobin 12.9 g/dL (12.0-15.0); Mean Corpuscular HGB Conc 32.7 g/dl (32-36); Mean Corpuscular Hemoglobin 32.5 pg (26-34); Mean Corpuscular Volume 99.5 fl (80-100); Mean Platelet Volume 9.8 fl (7.4-10.4); Platelet Count Result 100 k/mm3 (150-375); Red Blood Count 3.97 M/mm3 (4.2-5.4); Red Cell Distribution Width 13.7 % (11.5-14.5); White Blood Count 5.4 K/mm3 (4.5-10.0)
[2023-07-06 06:02] LABS: Anion Gap 6 mmol/L (8-16); Blood Urea Nitrogen 18 mg/dL (7-17); Calcium 8.2 mg/dL (8.4-10.2); Carbon Dioxide 26 mmol/L (22-30); Chloride 103 mmol/L (98-107); Estimated CRCL calculation 44 ml/min; Estimated Glomerular Filt Rate > 60; Glucose 98 mg/dL (65-110); Phosphorus 3.5 mg/dL (2.5-4.5); Sodium 135 mmol/L (137-145)
[2023-07-06 08:00] VITALS: BP 128/67; PULSE 69; RESP 18; TEMP 36.9; O2SAT 95
[2023-07-06] MEDS: ZINC SULFATE 220 MG CAPSULE PO (08:10)
[2023-07-06] MEDS: MAGNESIUM OXIDE 200 MG TABLET PO (08:10)
[2023-07-06] MEDS: buPROPion HCL SR (12 HR) 150 MG TAB PO ×2 (08:10→20:26)
[2023-07-06] MEDS: LOSARTAN POTASSIUM 50 MG TABLET PO (08:10)
[2023-07-06] MEDS: ASCORBIC ACID 500 MG TABLET PO (08:11)
[2023-07-06] MEDS: CHOLECALCIFEROL 1,000 UNITS TABLET 1000 UNITS PO (08:11)
--- NOTE | 2023-07-06 11:27 | PM.IMPN ---
Progress Note: A&P Assessment and Plan (1) Acute urinary tract infection: Code(s): N39.0 - Urinary tract infection, site not specified Status: Acute (2) Acute confusion: Code(s): R41.0 - Disorientation, unspecified Status: Acute (3) COVID: Code(s): U07.1 - COVID-19 Status: Acute (4) Encounter for long-term (current) use of other medications: Code(s): Z79.899 - Other parts counterman (current) drug therapy Status: Acute (5) Atrial fibrillation: Code(s): I48.91 - Unspecified atrial fibrillation Status: Acute (6) UTI (urinary tract infection): Code(s): N39.0 - Urinary tract infection, site not specified Status: Acute (7) Chronic pruritus: Code(s): L29.9 - Pruritus, unspecified Status: Acute (8) Anxiety: Code(s): F41.9 - Anxiety disorder, unspecified Status: Acute (9) Benign essential hypertension: Code(s): I10 - Essential (primary) hypertension Status: Acute (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: Qualifiers: Back pain laterality: unspecified Sciatica laterality: sciatica laterality unspecified Qualified Code(s): M54.40 - Lumbago with sciatica, unspecified side; G89.29 - Other chronic pain Code(s): M54.40 - Lumbago with sciatica, unspecified side; G89.29 - Other chronic pain Status: Acute (11) Osteoarthritis of knee, unspecified: Code(s): M17.9 - Osteoarthritis of knee, unspecified Status: Acute (12) Overactive bladder: Code(s): N32.81 - Overactive bladder Status: Acute (13) Vitamin D deficiency, unspecified: Code(s): E55.9 - Vitamin D deficiency, unspecified Status: Acute Plan Admit patient to medical unit under full inpatient status COVID-19 isolation precautions Patient is not requiring any oxygen and does not qualify for oral dexamethasone or IV remdesivir Patient started on supplemental treatment with zinc, vitamin-C and vitamin-D Patient started on IV ceftriaxone for UTI Follow-up urine cultures Gentle IV hydration with normal saline at 75 cc/hour Strict I&Os PT OT evaluation and treatment Care coordination consult for patient discharge DC patient back to senior care once patient is clinically stable Subjective Date/time seen: 07/06/23 11:27 Interval history: no new complaints Exam Narrative: PHYSICAL EXAMINATION: Vital signs: Please see the chart General physical exam: patient lying in bed during my ER evaluation, feels tired and fatigued, no acute distress Head/eyes: Atraumatic, EOMI, PERRLA ENT: Moist mucous membranes, nasal passages clear Neck: Supple, full range of motion, trachea midline CVS: S1 + S2, regular rate and rhythm, no murmurs Respiratory: Bilaterally decreased air entry in both lung teixeira, mild B/L crackles, symmetric chest expansion, no distress Abdomen: Soft, non-tender, bowel sounds +ve, no organomegaly Extremities: No clubbing, no cyanosis, no edema, no calf tenderness Musculoskeletal: Moves all, adequate range of motion, no muscle spasms Skin: Warm, dry, no jaundice, no cyanosis Neurological: Awake, alert, cranial nerves II-XII intact, no focal neurological deficits Psychiatric: Normal mood, non suicidal Objective Data Vital Signs Vital Signs: Vital Signs - 24 hr 07/05/23 15:11 07/05/23 18:53 07/05/23 15:40 Temperature 99.2 F Pulse Rate 72 71 73 Respiratory Rate 20 18 17 Blood Pressure 117/101 H 120/80 127/44 L Pulse Oximetry 97 98 96 Oxygen Delivery Room Air 07/05/23 16:15 07/05/23 17:00 07/05/23 18:15 Temperature Pulse Rate 73 83 76 Respiratory Rate 14 19 21 H Blood Pressure Pulse Oximetry 98 97 99 Oxygen Delivery 07/05/23 18:37 07/05/23 18:45 07/05/23 19:36 Temperature 98.1 F Pulse Rate 84 79 71 Respiratory Rate 20 16 26 H Blood Pressure Pulse Oximetry 99 99 97 Oxygen Delivery 07/05/23 19:00 07/05/23 19:15 07/05/23 19:16 Temperature
[2023-07-06 12:00] VITALS: BP 111/56; PULSE 687; RESP 18; TEMP 37.1; O2SAT 96
--- NOTE | 2023-07-06 12:37 | PCSTNOTE ---
Bedside swallowing evaluation completed. Cursory oral peripheral examination results within functional limits. Trials of thin liquid by cup and straw, pureed consistency food by spoon, and solid consistency by fingers (kamryn cracker) were given. No signs of aspiration or choking occurred. Swallowing function appears to be within functional limits. A modified barium swallow study could be completed to further assess patient for possible silent aspiration, but this is not suspected based on results of this bedside evaluation. Recommendation: regular diet texture and thin liquids. Thank you for the referral of this patient.
--- NOTE | 2023-07-06 15:49 | PC.NURSE ---
Pt has had two episodes of diarrhea today. Hospitalist, Dr. Maldonado, contacted and made aware of this. Inquired as to obtaining stool samples. Dr. Maldonado stated no need for stool samples. No other new orders received.
[2023-07-06 16:00] VITALS: BP 125/64; PULSE 71; RESP 16; TEMP 36.6; O2SAT 100
[2023-07-06] MEDS: RIVAROXABAN 15 MG TABLET BY MOUTH (18:15)
[2023-07-06 22:00] VITALS: BP 118/67; PULSE 101; RESP 18; TEMP 36.1; O2SAT 96
[2023-07-07 00:45] VITALS: BP 103/57; PULSE 64; RESP 20; TEMP 36; O2SAT 98
[2023-07-07 04:55] VITALS: BP 108/52; PULSE 71; RESP 20; TEMP 36.3; O2SAT 98
[2023-07-07 07:04] LABS: Hematocrit 43.1 % (37.0-47.0); Hemoglobin 13.4 g/dL (12.0-15.0); Immature Platelet Fraction Pct 3.9 % (0.9-11.2); Mean Corpuscular HGB Conc 31.1 g/dl (32-36); Mean Corpuscular Hemoglobin 31.9 pg (26-34); Mean Corpuscular Volume 102.6 fl (80-100); Mean Platelet Volume 10.3 fl (7.4-10.4); Platelet Count Result 97 k/mm3 (150-375); Red Cell Distribution Width 13.7 % (11.5-14.5); White Blood Count 4.3 K/mm3 (4.5-10.0)
[2023-07-07 07:34] LABS: Anion Gap 7 mmol/L (8-16); Blood Urea Nitrogen 14 mg/dL (7-17); Calcium 7.7 mg/dL (8.4-10.2); Carbon Dioxide 18 mmol/L (22-30); Chloride 110 mmol/L (98-107); Estimated CRCL calculation 44 ml/min; Estimated Glomerular Filt Rate > 60; Glucose 78 mg/dL (65-110); Potassium 3.7 mmol/L (3.4-5.0); Sodium 135 mmol/L (137-145)
[2023-07-07 08:00] VITALS: BP 140/80; PULSE 74; RESP 14; TEMP 36.2; O2SAT 98
[2023-07-07] MEDS: ASCORBIC ACID 500 MG TABLET PO (08:24)
[2023-07-07] MEDS: CHOLECALCIFEROL 1,000 UNITS TABLET 1000 UNITS PO (08:24)
[2023-07-07] MEDS: MAGNESIUM OXIDE 200 MG TABLET PO (08:24)
[2023-07-07] MEDS: buPROPion HCL SR (12 HR) 150 MG TAB PO ×2 (08:24→20:22)
[2023-07-07] MEDS: LOSARTAN POTASSIUM 50 MG TABLET PO (08:24)
[2023-07-07] MEDS: ACETAMINOPHEN 325 MG TABLET 650 MG PO (08:24)
[2023-07-07] MEDS: ZINC SULFATE 220 MG CAPSULE PO (08:24)
[2023-07-07] MEDS: SODIUM CHLORIDE 0.9% IV 1,000 ML 75 ML IV CONT ×2 (08:26→20:40)
--- NOTE | 2023-07-07 11:44 | PM.IMPN ---
Progress Note: A&P Assessment and Plan (1) Acute urinary tract infection: Code(s): N39.0 - Urinary tract infection, site not specified Status: Acute (2) Acute confusion: Code(s): R41.0 - Disorientation, unspecified Status: Acute (3) COVID: Code(s): U07.1 - COVID-19 Status: Acute (4) Encounter for long-term (current) use of other medications: Code(s): Z79.899 - Other extermination inspector (current) drug therapy Status: Acute (5) Atrial fibrillation: Code(s): I48.91 - Unspecified atrial fibrillation Status: Acute (6) UTI (urinary tract infection): Code(s): N39.0 - Urinary tract infection, site not specified Status: Acute (7) Chronic pruritus: Code(s): L29.9 - Pruritus, unspecified Status: Acute (8) Anxiety: Code(s): F41.9 - Anxiety disorder, unspecified Status: Acute (9) Benign essential hypertension: Code(s): I10 - Essential (primary) hypertension Status: Acute (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: Qualifiers: Back pain laterality: unspecified Sciatica laterality: sciatica laterality unspecified Qualified Code(s): M54.40 - Lumbago with sciatica, unspecified side; G89.29 - Other chronic pain Code(s): M54.40 - Lumbago with sciatica, unspecified side; G89.29 - Other chronic pain Status: Acute (11) Osteoarthritis of knee, unspecified: Code(s): M17.9 - Osteoarthritis of knee, unspecified Status: Acute (12) Overactive bladder: Code(s): N32.81 - Overactive bladder Status: Acute (13) Vitamin D deficiency, unspecified: Code(s): E55.9 - Vitamin D deficiency, unspecified Status: Acute Plan Admit patient to medical unit under full inpatient status COVID-19 isolation precautions Patient is not requiring any oxygen and does not qualify for oral dexamethasone or IV remdesivir Patient started on supplemental treatment with zinc, vitamin-C and vitamin-D Patient started on IV ceftriaxone for UTI Follow-up urine cultures Gentle IV hydration with normal saline at 75 cc/hour Strict I&Os PT OT evaluation and treatment Care coordination consult for patient discharge DC patient back to custodial once patient is clinically stable Subjective Date/time seen: 07/07/23 11:45 Interval history: feeling better Exam Narrative: PHYSICAL EXAMINATION: Vital signs: Please see the chart General physical exam: patient lying in bed during my ER evaluation, feels tired and fatigued, no acute distress Head/eyes: Atraumatic, EOMI, PERRLA ENT: Moist mucous membranes, nasal passages clear Neck: Supple, full range of motion, trachea midline CVS: S1 + S2, regular rate and rhythm, no murmurs Respiratory: Bilaterally decreased air entry in both lung teixeira, mild B/L crackles, symmetric chest expansion, no distress Abdomen: Soft, non-tender, bowel sounds +ve, no organomegaly Extremities: No clubbing, no cyanosis, no edema, no calf tenderness Musculoskeletal: Moves all, adequate range of motion, no muscle spasms Skin: Warm, dry, no jaundice, no cyanosis Neurological: Awake, alert, cranial nerves II-XII intact, no focal neurological deficits Psychiatric: Normal mood, non suicidal Objective Data Vital Signs Vital Signs: Vital Signs - 24 hr 07/06/23 12:00 07/06/23 16:00 07/06/23 20:00 Temperature 98.8 F 97.9 F Pulse Rate 687 H 71 Respiratory Rate 18 16 Blood Pressure 111/56 L 125/64 Pulse Oximetry 96 100 Oxygen Delivery Room Air 07/06/23 22:00 07/07/23 00:45 07/07/23 04:55 Temperature 97.0 F L 96.8 F L 97.4 F L Pulse Rate 101 H 64 71 Respiratory Rate 18 20 20 Blood Pressure 118/67 103/57 L 108/52 L Pulse Oximetry 96 98 98 Oxygen Delivery 07/07/23 08:00 07/07/23 08:20 Temperature 97.2 F L Pulse Rate 74 Respiratory Rate 14 Blood Pressure 140/80 Pulse Oximetry 98 Oxygen Delivery Room Air Intake/Output Intake/Output: Intake & O
[2023-07-07 12:00] VITALS: BP 135/79; PULSE 65; RESP 14; TEMP 36.3; O2SAT 97
[2023-07-07 16:00] VITALS: BP 137/83; PULSE 72; RESP 14; TEMP 36.4; O2SAT 100
[2023-07-07] MEDS: RIVAROXABAN 15 MG TABLET BY MOUTH (17:27)
[2023-07-07 20:00] VITALS: BP 167/79; PULSE 74; RESP 16; TEMP 35.8; O2SAT 97
[2023-07-08] VITALS: BP 159/67; PULSE 85; RESP 18; TEMP 35.8; O2SAT 99
[2023-07-08 04:00] VITALS: BP 131/65; PULSE 63; RESP 20; TEMP 35.6; O2SAT 96
[2023-07-08] MEDS: ACETAMINOPHEN 325 MG TABLET 650 MG PO (05:35)
[2023-07-08 06:50] LABS: Hematocrit 38.8 % (37.0-47.0); Hemoglobin 12.5 g/dL (12.0-15.0); Immature Platelet Fraction Pct 3.5 % (0.9-11.2); Mean Corpuscular HGB Conc 32.2 g/dl (32-36); Mean Corpuscular Hemoglobin 32.1 pg (26-34); Mean Corpuscular Volume 99.5 fl (80-100); Mean Platelet Volume 10.3 fl (7.4-10.4); Platelet Count Result 89 k/mm3 (150-375); Red Cell Distribution Width 13.3 % (11.5-14.5); White Blood Count 3.6 K/mm3 (4.5-10.0)
[2023-07-08 07:00] LABS: Anion Gap 4 mmol/L (8-16); Blood Urea Nitrogen 11 mg/dL (7-17); Calcium 7.6 mg/dL (8.4-10.2); Carbon Dioxide 27 mmol/L (22-30); Chloride 104 mmol/L (98-107); Estimated CRCL calculation 60 ml/min; Estimated Glomerular Filt Rate > 60; Glucose 96 mg/dL (65-110); Potassium 3.5 mmol/L (3.4-5.0); Sodium 135 mmol/L (137-145)
[2023-07-08 07:34] LABS: Glucose Point of Care 95 mg/dl (65-105)
[2023-07-08 08:00] VITALS: BP 129/90; PULSE 74; RESP 18; O2SAT 98
[2023-07-08] MEDS: SODIUM CHLORIDE 0.9% IV 1,000 ML 75 ML IV CONT (08:50)
[2023-07-08] MEDS: ZINC SULFATE 220 MG CAPSULE PO (08:51)
[2023-07-08] MEDS: MAGNESIUM OXIDE 200 MG TABLET PO (08:51)
[2023-07-08] MEDS: ASCORBIC ACID 500 MG TABLET PO (08:51)
[2023-07-08] MEDS: LOSARTAN POTASSIUM 50 MG TABLET PO (08:51)
[2023-07-08] MEDS: CHOLECALCIFEROL 1,000 UNITS TABLET 1000 UNITS PO (08:51)
[2023-07-08] MEDS: buPROPion HCL SR (12 HR) 150 MG TAB PO ×2 (08:51→19:54)
[2023-07-08 11:23] LABS: Glucose Point of Care 85 mg/dl (65-105)
--- NOTE | 2023-07-08 11:38 | PM.IMPN ---
Progress Note: A&P Assessment and Plan (1) Acute urinary tract infection: Code(s): N39.0 - Urinary tract infection, site not specified Status: Acute (2) Acute confusion: Code(s): R41.0 - Disorientation, unspecified Status: Acute (3) COVID: Code(s): U07.1 - COVID-19 Status: Acute (4) Encounter for long-term (current) use of other medications: Code(s): Z79.899 - Other terminal supervisor (current) drug therapy Status: Acute (5) Atrial fibrillation: Code(s): I48.91 - Unspecified atrial fibrillation Status: Acute (6) UTI (urinary tract infection): Code(s): N39.0 - Urinary tract infection, site not specified Status: Acute (7) Chronic pruritus: Code(s): L29.9 - Pruritus, unspecified Status: Acute (8) Anxiety: Code(s): F41.9 - Anxiety disorder, unspecified Status: Acute (9) Benign essential hypertension: Code(s): I10 - Essential (primary) hypertension Status: Acute (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: Qualifiers: Back pain laterality: unspecified Sciatica laterality: sciatica laterality unspecified Qualified Code(s): M54.40 - Lumbago with sciatica, unspecified side; G89.29 - Other chronic pain Code(s): M54.40 - Lumbago with sciatica, unspecified side; G89.29 - Other chronic pain Status: Acute (11) Osteoarthritis of knee, unspecified: Code(s): M17.9 - Osteoarthritis of knee, unspecified Status: Acute (12) Overactive bladder: Code(s): N32.81 - Overactive bladder Status: Acute (13) Vitamin D deficiency, unspecified: Code(s): E55.9 - Vitamin D deficiency, unspecified Status: Acute Plan Admit patient to medical unit under full inpatient status COVID-19 isolation precautions Patient is not requiring any oxygen and does not qualify for oral dexamethasone or IV remdesivir Patient started on supplemental treatment with zinc, vitamin-C and vitamin-D Patient started on IV ceftriaxone for UTI Follow-up urine cultures Gentle IV hydration with normal saline at 75 cc/hour Strict I&Os PT OT evaluation and treatment Care coordination consult for patient discharge DC patient back to [facility] once patient is clinically stable Subjective Date/time seen: 07/08/23 11:38 Interval history: No complaints Exam Narrative: PHYSICAL EXAMINATION: Vital signs: Please see the chart General physical exam: patient lying in bed during my ER evaluation, feels tired and fatigued, no acute distress Head/eyes: Atraumatic, EOMI, PERRLA ENT: Moist mucous membranes, nasal passages clear Neck: Supple, full range of motion, trachea midline CVS: S1 + S2, regular rate and rhythm, no murmurs Respiratory: Bilaterally decreased air entry in both lung teixeira, mild B/L crackles, symmetric chest expansion, no distress Abdomen: Soft, non-tender, bowel sounds +ve, no organomegaly Extremities: No clubbing, no cyanosis, no edema, no calf tenderness Musculoskeletal: Moves all, adequate range of motion, no muscle spasms Skin: Warm, dry, no jaundice, no cyanosis Neurological: Awake, alert, cranial nerves II-XII intact, no focal neurological deficits Psychiatric: Normal mood, non suicidal Objective Data Vital Signs Vital Signs: Vital Signs - 24 hr 07/07/23 13:05 07/07/23 12:00 07/07/23 16:00 Temperature 97.3 F L 97.5 F L Pulse Rate 65 72 Respiratory Rate 14 14 Blood Pressure 135/79 137/83 Pulse Oximetry 97 100 Oxygen Delivery Room Air 07/07/23 20:00 07/07/23 20:00 07/08/23 00:00 Temperature 96.5 F L 96.5 F L Pulse Rate 74 74 85 Respiratory Rate 16 16 18 Blood Pressure 167/79 H 159/67 H Pulse Oximetry 97 97 99 Oxygen Delivery Room Air 07/08/23 04:00 07/08/23 08:00 07/08/23 08:00 Temperature 96.1 F L Pulse Rate 63 74 Respiratory Rate 20 18 Blood Pressure 131/65 129/90 Pulse Oximetry 96 98 Oxygen Delivery Room Air Intake/Output Inta
[2023-07-08 11:54] VITALS: BP 121/71; PULSE 70; RESP 16; O2SAT 97
--- NOTE | 2023-07-08 15:54 | PM.DS ---
DS: Admitting Diagnosis Discharge Date 07/08/23 Admitting Diagnosis covid DS: Discharge Diagnosis Discharge Diagnosis (1) Acute urinary tract infection: Code(s): N39.0 - Urinary tract infection, site not specified Status: Acute (2) Acute confusion: Code(s): R41.0 - Disorientation, unspecified Status: Acute (3) COVID: Code(s): U07.1 - COVID-19 Status: Acute (4) Encounter for long-term (current) use of other medications: Code(s): Z79.899 - Other group home (current) drug therapy Status: Acute (5) Atrial fibrillation: Code(s): I48.91 - Unspecified atrial fibrillation Status: Acute (6) UTI (urinary tract infection): Code(s): N39.0 - Urinary tract infection, site not specified Status: Acute (7) Chronic pruritus: Code(s): L29.9 - Pruritus, unspecified Status: Acute (8) Anxiety: Code(s): F41.9 - Anxiety disorder, unspecified Status: Acute (9) Benign essential hypertension: Code(s): I10 - Essential (primary) hypertension Status: Acute (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: Qualifiers: Back pain laterality: unspecified Sciatica laterality: sciatica laterality unspecified Qualified Code(s): M54.40 - Lumbago with sciatica, unspecified side; G89.29 - Other chronic pain Code(s): M54.40 - Lumbago with sciatica, unspecified side; G89.29 - Other chronic pain Status: Acute (11) Osteoarthritis of knee, unspecified: Code(s): M17.9 - Osteoarthritis of knee, unspecified Status: Acute (12) Overactive bladder: Code(s): N32.81 - Overactive bladder Status: Acute (13) Vitamin D deficiency, unspecified: Code(s): E55.9 - Vitamin D deficiency, unspecified Status: Acute Plan Admit patient to medical unit under full inpatient status COVID-19 isolation precautions Patient is not requiring any oxygen and does not qualify for oral dexamethasone or IV remdesivir Patient started on supplemental treatment with zinc, vitamin-C and vitamin-D Patient started on IV ceftriaxone for UTI Follow-up urine cultures Gentle IV hydration with normal saline at 75 cc/hour Strict I&Os PT OT evaluation and treatment Care coordination consult for patient discharge DC patient back to [place] [facility] once patient is clinically stable DS: Summary Hospital Course Hospital Course: Admitted for ftt gemiin smith. Treated conservatively and did well. No resp issues or complications during this hospitalization. She was originally thought ot have UTI however cx negative. No need for abx. ok for dc to snf. Time Spent with Patient Time attestation: Total time spent providing and/or coordinating discharge services: Exam Narrative: PHYSICAL EXAMINATION: Vital signs: Please see the chart General physical exam: patient lying in bed during my ER evaluation, feels tired and fatigued, no acute distress Head/eyes: Atraumatic, EOMI, PERRLA ENT: Moist mucous membranes, nasal passages clear Neck: Supple, full range of motion, trachea midline CVS: S1 + S2, regular rate and rhythm, no murmurs Respiratory: Bilaterally decreased air entry in both lung teixeira, mild B/L crackles, symmetric chest expansion, no distress Abdomen: Soft, non-tender, bowel sounds +ve, no organomegaly Extremities: No clubbing, no cyanosis, no edema, no calf tenderness Musculoskeletal: Moves all, adequate range of motion, no muscle spasms Skin: Warm, dry, no jaundice, no cyanosis Neurological: Awake, alert, cranial nerves II-XII intact, no focal neurological deficits Psychiatric: Normal mood, non suicidal DS: Data Data Completed and Pending Labs on day of discharge: Labs from last 24 hours 07/08/23 07/08/23 07/08/23 11:16 07:30 06:21 WBC 3.6 L RBC 3.90 L Hgb 12.5 Hct 38.8 MCV 99.5 MCH 32.1 MCHC 32.2 RDW 13.3 Plt Count 89 L MPV 10.3 % Immature Plt Fraction 3.5 Sodium 135 L Po
[2023-07-08 16:00] VITALS: BP 129/89; PULSE 87; RESP 20; O2SAT 100
[2023-07-08 16:52] LABS: Glucose Point of Care 86 mg/dl (65-105)
[2023-07-08] MEDS: RIVAROXABAN 15 MG TABLET BY MOUTH (17:29)
== END 2023-07-08 21:00 | DRG 178 ==
LOC: ANHED 20:02 → ANH3MEDSUR 20:53
PROVIDERS: Emergency Medicine; Admitting Provider Family Medicine; Emergency Provider Student in an Organized Health Care Education/Training Program; PCP Nurse Practitioner; Visit Provider Chiropractor
DX: U07.1 COVID-19 (principal); N39.0 Urinary tract infection, site not specified; I10 Essential (primary) hypertension; I48.91 Unspecified atrial fibrillation; E55.9 Vitamin D deficiency, unspecified; L29.9 Pruritus, unspecified; K57.30 Diverticulosis of large intestine without perforation or abscess without bleeding; M17.9 Osteoarthritis of knee, unspecified; N32.81 Overactive bladder; G89.29 Other chronic pain; M54.40 Lumbago with sciatica, unspecified side; F32.A Depression, unspecified; F17.210 Nicotine dependence, cigarettes, uncomplicated
CPT/HCPCS: 36415; 70450; 71046; 74176; 80048; 80053; 81001; 82948; 83735; 83880; 84100; 84484; 85025; 85027; 85055; 86140; 87086; 87088; 87635; 92610; 93005; 96365; 97110; 97116; 97161; 97165; 97530; 99285; A9270; J0696; J7030

== ENCOUNTER 2024-06-18 19:48 | Emergency (ER) | payer MEDICARE, SELFPAY ==
--- NOTE | ~2024-06-18 | CT_ITS ---
EXAMINATION: CT brain wo con DATE: 06/18/2024 20:34 INDICATION: Fall. TECHNIQUE: Computed tomography (CT) of the head was performed without intravenous contrast. The mA wa s adjusted according to patient size. Iterative reconstruction technique was employed. The dose-lengt h product was 681.00 mGy-cm. COMPARISON: Head CT 07/05/2023 FINDINGS: There are scattered areas of low attenuation in the cerebral white matter. There is no intr acranial hemorrhage, acute infarction, or abnormal intracranial mass lesion. The ventricles are puneet l in size. There are likely changes of left ocular lens replacement surgery. There is a left frontal scalp hematoma. There is mild mucosal thickening in the paranasal sinuses. The mastoid air cells are normal. IMPRESSION: 1. Stable moderate nonspecific cerebral white matter disease, which likely represents chronic small v essel ischemic disease. Reviewed, dictated and finalized at location A. IMPRESSION: 1. Stable moderate nonspecific cerebral white matter disease, which likely repr esents chronic small vessel ischemic disease.
--- NOTE | ~2024-06-18 | CT_ITS ---
EXAMINATION: CT cervical spine wo con DATE: 06/18/2024 20:35 INDICATION: Head injury. TECHNIQUE: Computed tomography (CT) of the cervical spine was performed without intravenous contrast. Automated exposure control and iterative reconstruction technique were employed. The dose-length pro duct was 681.00 mGy-cm. COMPARISON: None FINDINGS: There is a 2.0 cm nodule in right thyroid lobe. There is 2 mm anterolisthesis of C4 on C5 a nd C7 on T1. There is 3 degrees levocurvature of cervical spine. Vertebral body heights are normal. T here is mildly decreased disc height at C2-C3, C3-C4, and C4-C5 and severely decreased disc height at C5-C6 and C6-C7. The following disc levels are specifically discussed: C2-C3: There is mild bilateral uncovertebral joint osteoarthritis. There is severe bilateral facet denny int osteoarthritis. There is mild bilateral neural foraminal stenosis. There is mild central canal st enosis. C3-C4: There is moderate bilateral uncovertebral joint osteoarthritis. There is severe bilateral face t joint osteoarthritis. There is mild bilateral neural foraminal stenosis. There is no central canal stenosis. C4-C5: There is moderate bilateral uncovertebral joint osteoarthritis. There is severe bilateral face t joint osteoarthritis. There is mild right and moderate left neural foraminal stenosis. There is mil d central canal stenosis. C5-C6: There is severe bilateral uncovertebral joint osteoarthritis. There is severe bilateral facet joint osteoarthritis. There is mild bilateral neural foraminal stenosis. There is mild central canal stenosis. C6-C7: There is severe bilateral uncovertebral joint osteoarthritis. There is severe bilateral facet joint osteoarthritis. There is mild right and moderate left neural foraminal stenosis. There is mild central canal stenosis. C7-T1: There is no uncovertebral joint osteoarthritis. There is severe bilateral facet joint osteoart hritis. There is mild bilateral neural foraminal stenosis. There is no central canal stenosis. IMPRESSION: 1. No fracture. 2. Severe cervical spondylosis. Reviewed, dictated and finalized at location A.
[2024-06-18 19:51] VITALS: BP 134/65; PULSE 71; RESP 13; TEMP 36.4; O2SAT 98
--- NOTE | 2024-06-18 20:24 | ED.HEATRA ---
HPI - Head Injury General Chief complaint: Head Injury Stated complaint: FALL, ?LOC Time Seen by Provider: 06/18/24 19:53 Source: patient, EMS and RN notes reviewed Mode of arrival: EMS Limitations: dementia History of Present Illness HPI Narrative: Patient presents after reportedly sustaining a ground level fall while in the shower striking her head. Unknown loss of consciousness as it was not witnessed. She is alert oriented x1 at baseline and is this at presentation. She denies any pain including no pain in neck or back or extremities. With palpation of the left scalp hematoma she does have some pain. It is reported that she is on Xarelto though patient does not present with a medication list. Related Data Home Medications Medication Instructions Recorded Confirmed Calcium 600 + D(3) 1 tab-cap PO DAILY 08/22/19 04/15/24 magnesium 30 mg tablet 30 mg PO DAILY 06/12/21 04/15/24 hydrochlorothiazide 12.5 mg tablet 12.5 mg PO DAILY 07/05/23 04/15/24 nitrofurantoin macrocrystal 50 mg 50 mg PO .COMPLEX 04/15/24 04/15/24 capsule Allergies Allergy/AdvReac Type Severity Reaction Status Date / Time Sulfa (Sulfonamide Allergy Unknown Unknown Verified 06/18/24 19:59 Antibiotics) tobramycin Allergy Unknown Unknown Verified 06/18/24 19:59 [facility] Past Medical History Medical History Acute confusion Acute urinary tract infection Atrial flutter by electrocardiogram Body mass index (bmi) 32.0-32.9, adult (06/17/19) Cervicalgia Chronic low back pain with sciatica COVID Depression Diverticulitis Dry skin Encounter for long-term (current) use of other medications Encounter for surgical aftercare following surgery on the skin and subcutaneous tissue Enteritis Epidermal cyst Hand paresthesia Herniated disc Hypertension Hypertension secondary to endocrine disorders IGT (impaired glucose tolerance) Memory deficit following unspecified cerebrovascular disease Obesity Osteoarthritis of knee, unspecified Post-inflammatory scarring Right-sided thoracic back pain Skin lesion of lower extremity (~11/2019) Urinary tract infection UTI (urinary tract infection) Wound infection following procedure Surgical History Surgical History H/O hernia repair 1995 H/O: hysterectomy 1994 Family History Family History Sibling Family history of diabetes mellitus in first degree relative Family history of coronary artery disease Family history of malignant neoplasm of breast in first degree relative Family history of malignant neoplasm of kidney Patient's brother is Father Family history of coronary artery disease Mother Family history of coronary artery disease Social History Social History Social History: Smoking packs per day: 0.5 Smoking cigarettes per day: 10.0 Years smoked: 70 Smoking pack-years: 35.00 Smoking status: Current every day smoker Tobacco type: cigarettes Second hand tobacco smoke exposure: Yes Alcohol intake: never Substance use: never Substance use type: does not use Lack of Transportation: No Lack of Food: Never True Current Housing: I Have Housing Concerned About Future Housing: No Difficulty Paying Gas/Electric Bills: No Difficulty Paying for Meds: No Currently Unemployed: No Education: High School Diploma/GED Difficulty w/ Childcare or Family Care: No Living arrangements: assisted living Additional living arrangements comments: Resides at [facility] (since 06/29/23) Spiritual care concerns: No (Zoroastrian) Exam Narrative: GENERAL: Well-appearing, well-nourished, and in no acute distress. HEAD: Hematoma on left forehead with no laceration or active bleeding. EYES: Non injected, non icteric ENT: Nares clear, no rh
[2024-06-18] MEDS: ACETAMINOPHEN 500 MG TABLET 1000 MG PO (20:50)
--- NOTE | 2024-06-18 21:45 | PC.NURSE ---
Report called to Gege at [facility]. All questions answered at this time. EMS to transport pt back to [facility].
[2024-06-18 23:26] VITALS: BP 154/78; PULSE 78; RESP 14; O2SAT 97
== END 2024-06-18 23:27 ==
LOC: ANHED 21:15
PROVIDERS: Emergency Provider Student in an Organized Health Care Education/Training Program; PCP Nurse Practitioner
DX: S00.03XA Contusion of scalp, initial encounter (principal); M47.812 Spondylosis without myelopathy or radiculopathy, cervical region; W18.2XXA Fall in (into) shower or empty bathtub, initial encounter; F32.A Depression, unspecified; I10 Essential (primary) hypertension; F17.210 Nicotine dependence, cigarettes, uncomplicated
CPT/HCPCS: 70450; 72125; 99284; A9270

== ENCOUNTER 2024-06-22 16:43 | Emergency (ER) | payer MEDICARE, SELFPAY ==
--- NOTE | ~2024-06-22 | CT_ITS ---
EXAMINATION: CT lumbar spine wo con DATE: 06/22/2024 19:39 INDICATION: lower back pain, weakness . TECHNIQUE: Computed tomography (CT) of the lumbar spine was performed without intravenous contrast. A utomated exposure control and iterative reconstruction technique were employed. The dose-length produ ct was 724.90 mGy-cm. COMPARISON: L-spine 06/09/2019. FINDINGS: 5 nonrib-bearing lumbar-type vertebral bodies. Pedicles intact. Moderate scoliosis. 6 mm an terolisthesis at L2-3. Osseous degenerative fusion at T12-L1 and spanning L3-L5. Focal kyphosis cente red at L2-3. Severe neural foraminal narrowing on the right at L4-5 and on the left at L2-3. At least moderate narrowing at multiple additional levels bilaterally. Multilevel moderate facet arthropathy. Severe degenerative disc changes at L1-2 and L2-3. Severe central canal stenosis at L2-3 secondary t o degenerative disc and facet changes. Vertebral body heights maintained, with the exception of chron ic multilevel lateral vertebral body height loss related to the scoliotic changes. IMPRESSION: No acute fracture or traumatic malalignment in the lumbar spine. Grade 1 anterolisthesis at L2-3. Severe central canal stenosis at L2-3 secondary to degenerative disc and facet change. Severe left L2-3 and right L4-5 neural foraminal narrowing secondary to degenerative changes. Reviewed, dictated and finalized at location K. IMPRESSION: No acute fracture or traumatic malalignment in the lumbar spine. Grade 1 anterolisthesis at L2-3. Severe central canal stenosis at L2-3 secondary to degenerative disc and facet change. Severe left L2-3 and right L4-5 neural foraminal narrowing secondary to degener ative changes.
[2024-06-22 16:52] VITALS: BP 125/55; PULSE 66; RESP 16; TEMP 36.6; O2SAT 97
[2024-06-22 17:36] VITALS: BP 105/58; PULSE 73; RESP 17; TEMP 36.6; O2SAT 98
[2024-06-22 18:31] VITALS: BP 108/65; PULSE 65; RESP 16; TEMP 36.6; O2SAT 98
--- NOTE | 2024-06-22 18:34 | PC.NURSE ---
spoke with Joy from [facility] and she reports pt has had c/o low back pain and required more assistance with transfers. JACKIE Solorio notified
[2024-06-22 18:52] VITALS: BP 104/78; PULSE 72; RESP 16; TEMP 36.6; O2SAT 99
--- NOTE | 2024-06-22 19:56 | ED.FALL ---
HPI - Fall General Chief Complaint: Fall Stated Complaint: fall Time Seen by Provider: 06/22/24 16:56 Source: patient Mode of arrival: EMS Limitations: altered mental status History of Present Illness HPI Narrative: Patient is an 88-year-old female who presents to the ER via EMS. She had a fall last week for which she was worked up for here. At that visit, her CT brain and neck were negative. Pt was sent back to the ER by the [place] [facility] today for increased weakness and complaints of back pain. She denies complaints of headache, chest pain, or shortness of breath, but is A & O x 1-2 at this time. Related Data Home Medications Medication Instructions Recorded Confirmed Calcium 600 + D(3) 1 tab-cap PO DAILY 08/22/19 04/15/24 magnesium 30 mg tablet 30 mg PO DAILY 06/12/21 04/15/24 hydrochlorothiazide 12.5 mg tablet 12.5 mg PO DAILY 07/05/23 04/15/24 nitrofurantoin macrocrystal 50 mg 50 mg PO .COMPLEX 04/15/24 04/15/24 capsule Allergies Allergy/AdvReac Type Severity Reaction Status Date / Time Sulfa (Sulfonamide Allergy Unknown Unknown Verified 06/18/24 19:59 Antibiotics) tobramycin Allergy Unknown Unknown Verified 06/18/24 19:59 Review of Systems Review of Systems: All systems reviewed & are unremarkable except as noted in HPI and below PMFSH Past Medical History Medical History Acute confusion Acute urinary tract infection Atrial flutter by electrocardiogram Body mass index (bmi) 32.0-32.9, adult (06/17/19) Cervicalgia Chronic low back pain with sciatica COVID Depression Diverticulitis Dry skin Encounter for long-term (current) use of other medications Encounter for surgical aftercare following surgery on the skin and subcutaneous tissue Enteritis Epidermal cyst Hand paresthesia Herniated disc Hypertension Hypertension secondary to endocrine disorders IGT (impaired glucose tolerance) Memory deficit following unspecified cerebrovascular disease Obesity Osteoarthritis of knee, unspecified Post-inflammatory scarring Right-sided thoracic back pain Skin lesion of lower extremity (~11/2019) Urinary tract infection UTI (urinary tract infection) Wound infection following procedure Surgical History Surgical History H/O hernia repair 1995 H/O: hysterectomy 1994 Family History Family History Sibling Family history of diabetes mellitus in first degree relative Family history of coronary artery disease Family history of malignant neoplasm of breast in first degree relative Family history of malignant neoplasm of kidney Patient's brother is Father Family history of coronary artery disease Mother Family history of coronary artery disease Social History Social History Social History: Smoking packs per day: 0.5 Smoking cigarettes per day: 10.0 Years smoked: 70 Smoking pack-years: 35.00 Smoking status: Current every day smoker Tobacco type: cigarettes Second hand tobacco smoke exposure: Yes Alcohol intake: never Substance use: never Substance use type: does not use Lack of Transportation: No Lack of Food: Never True Current Housing: I Have Housing Concerned About Future Housing: No Difficulty Paying Gas/Electric Bills: No Difficulty Paying for Meds: No Currently Unemployed: No Education: High School Diploma/GED Difficulty w/ Childcare or Family Care: No Living arrangements: assisted living Additional living arrangements comments: Resides at [facility] (since 06/29/23) Spiritual care concerns: No (Episcopal) Exam Narrative: GENERAL: Well appearing, well-nourished, non-toxic, in no acute distress. HEAD: Normocephalic, half dollar-sized lump on pt's L upper forehead that is weeping a small amou
[2024-06-22 20:02] LABS: Basophils Percent Auto 0.4 % (0.2-1.2); Eosinophils Absolute Auto 0.1 K/mm3 (0-0.3); Eosinophils Percent Auto 0.8 % (0-4.4); Hematocrit 37.6 % (37.0-47.0); Immature Granulocyte Absolute 0.03 K/mm3 (0.00-0.031); Immature Granulocyte Percent A 0.4 % (0-0.5); Lymphocytes Absolute Auto 1.74 K/mm3 (0.9-3.2); Lymphocytes Percent Auto 20.9 % (18.3-44.2); Mean Corpuscular HGB Conc 31.9 g/dl (32-36); Mean Corpuscular Hemoglobin 31.8 pg (26-34); Mean Corpuscular Volume 99.7 fl (80-100); Mean Platelet Volume 9.2 fl (7.4-10.4); Monocytes Absolute Auto 0.8 K/mm3 (0.1-0.6); Monocytes Percent Auto 9.7 % (2.6-8.5); Neutrophils Absolute Auto 5.7 K/mm3 (1.3-6.7); Neutrophils Percent Auto 67.8 % (45.5-73.1); Platelet Count Result 183 k/mm3 (150-375); Red Blood Count 3.77 M/mm3 (4.2-5.4); Red Cell Distribution Width 13.8 % (11.5-14.5); White Blood Count 8.3 K/mm3 (4.5-10.0)
[2024-06-22 20:17] LABS: Alanine Aminotransferase 27 U/L (6-35); Albumin Level 3.6 g/dL (3.5-5.1); Alkaline Phosphatase 80 U/L (38-126); Anion Gap 7 mmol/L (4-12); Aspartate Amino Transferase 47 U/L (14-36); Bilirubin,Total 0.6 mg/dL (0.2-1.3); Blood Urea Nitrogen 28 mg/dL (7-17); Calcium 8.5 mg/dL (8.4-10.2); Carbon Dioxide 33 mmol/L (22-30); Chloride 95 mmol/L (98-107); Estimated CRCL calculation 32 ml/min; Estimated Glomerular Filt Rate 52; Glucose 95 mg/dL (65-110); Potassium 3.8 mmol/L (3.4-5.0); Sodium 135 mmol/L (137-145)
[2024-06-22] MEDS: SODIUM CHLORIDE 0.9% IV 1,000 ML 500 ML IV CONT (20:32)
[2024-06-22 21:00] VITALS: BP 167/96; PULSE 77; RESP 16; TEMP 36.6; O2SAT 99
[2024-06-22 21:10] LABS: Add Urine Microscopic? YES; Appearance Urine Cloudy (Clear); Bacteria Urine None Seen /hpf; Bilirubin Urine Negative (Negative); Blood Urine Negative (Negative); Color Urine Yellow (Yellow); Glucose Urine UA Negative (Negative); Ketones Urine Trace mg/dL (Negative); Leukocyte Esterase Ur Negative LEU/UL (Negative); Nitrate Urine Negative (Negative); Non Pathogenic Casts 0-2; Protein Urine Negative (Negative); RBC Urine 0-2 /hpf (0-2); Specific Grav Ur 1.023 (1.001-1.035); Squamous Epithelial Cell Urine None Seen /hpf (Few); WBC Urine 0-5 /hpf (0-3); pH Urine 5.5 (5.0-9.0)
--- NOTE | 2024-06-22 22:40 | PC.NURSE ---
Attempted to call [facility]; no answer.
[2024-06-22 23:10] VITALS: BP 127/87; PULSE 77; RESP 18; TEMP 36.9; O2SAT 99
== END 2024-06-22 23:14 ==
PROVIDERS: Emergency Provider Registered Nurse; PCP Nurse Practitioner
DX: E86.0 Dehydration (principal); M54.50 Low back pain, unspecified; F17.210 Nicotine dependence, cigarettes, uncomplicated; F32.A Depression, unspecified; I10 Essential (primary) hypertension; M19.90 Unspecified osteoarthritis, unspecified site; Z87.440 Personal history of urinary (tract) infections
CPT/HCPCS: 36415; 72131; 80053; 81001; 85025; 96360; 96361; 99284; J7030

== ENCOUNTER 2024-07-10 18:02 | Emergency (ER) | payer OTHER, MEDICARE, SELFPAY ==
--- NOTE | ~2024-07-10 | CT_ITS ---
EXAMINATION: CT facial & cervical spine wo DATE: 07/10/2024 19:06 INDICATION: trauma TECHNIQUE: Computed tomography (CT) of the maxillofacial region and cervical spine was performed with out intravenous contrast. Automated exposure control and iterative reconstruction technique were empl oyed. The dose-length product was 155.39 mGy-cm. COMPARISON: CT C-spine 06/18/2024 FINDINGS: CERVICAL: Vertebral Body Alignment: Reversed lordosis centered at C5-6. Multilevel minimal grade 1 listheses, u nchanged given interval differences in positioning, and likely related to degenerative change. Craniocervical and atlantoaxial alignment: Moderate degenerative change. Alignment intact. Osseous structures/fracture: No evidence of a lytic or blastic process in the visualized spine. No e vidence of acute fracture. Cervical soft tissues: The paraspinal soft tissues planes are maintained. 1.8 cm right thyroid nodule . Degenerative changes: Degenerative changes, without severe neural foraminal or central canal narrowin g. FACE: Soft Tissues: Left frontal soft tissue swelling.. Facial bones: No acute fracture. No lytic or blastic process. Eyes: The globes are intact. The soft tissue planes of the orbits are maintained. Left lens replace ment. Paranasal Sinuses: Small retention cyst/polyp in the inferior maxillary sinus, the remaining aerated spaces are clear. Foreign Bodies: No radiopaque foreign bodies. Other Findings: None. IMPRESSION: No acute fracture or traumatic malalignment in the cervical spine. No acute facial bone fracture. 1.8 cm right thyroid nodule, consider nonemergent outpatient thyroid ultrasound for further character ization. Reviewed, dictated and finalized at location K. IMPRESSION: No acute fracture or traumatic malalignment in the cervical spine. No acute fac ial bone fracture. 1.8 cm right thyroid nodule, consider nonemergent outpatient thyroid ultrasound for further characterization.
--- NOTE | ~2024-07-10 | XR_ITS ---
EXAM: XR shoulder LT min 2V DATE: 07/10/2024 19:06 HISTORY: trauma . COMPARISON: None available. FINDINGS: Decreased mineralization. Mild degenerative change in the AC joint and glenohumeral joint. No fracture or dislocation. Low volume in the left lung with bronchovascular crowding. IMPRESSION: No acute osseous finding in the left shoulder. Reviewed, dictated and finalized at location K.
--- NOTE | ~2024-07-10 | CT_ITS ---
EXAMINATION: CT brain wo con DATE: 07/10/2024 19:06 INDICATION: trauma . TECHNIQUE: Computed tomography (CT) of the head was performed without intravenous contrast. The mA wa s adjusted according to patient size. Iterative reconstruction technique was employed. The dose-lengt h product was 605.33 mGy-cm. COMPARISON: 06/18/2024. FINDINGS: No acute intracranial hemorrhage or extra-axial fluid collection. No hydrocephalus, mass, or herniation. No acute ischemic infarct. Unremarkable dural venous sinus attenuation. No acute osseous abnormality. The aerated spaces are clear. Moderate atrophy and chronic white matter change. Atherosclerotic intracranial calcification. Left le ns replacement. IMPRESSION: No acute intracranial process. Reviewed, dictated and finalized at location K.
--- NOTE | ~2024-07-10 | CT_ITS ---
EXAMINATION: CT pelvis wo con DATE: 07/10/2024 19:05 INDICATION: Trauma TECHNIQUE: Computed tomography (CT) of the pelvis was performed without intravenous contrast. Automat ed exposure control and iterative reconstruction technique were employed. The dose-length product was 831.41 mGy-cm. COMPARISON: None FINDINGS: Diffuse osteopenia. 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 Mild degenerative change at the pubic symphysis. No fracture or dislocation. Diverti culosis. Atherosclerotic arterial calcifications. Lower abdominal hernia mesh. IMPRESSION: No acute osseous finding in the pelvis. Reviewed, dictated and finalized at location K.
[2024-07-10 18:03] VITALS: BP 111/67; PULSE 86; RESP 15; TEMP 36.8; O2SAT 97
[2024-07-10 18:16] VITALS: BP 111/67; PULSE 81; RESP 18; O2SAT 98
--- NOTE | 2024-07-10 19:03 | ED.FALL ---
HPI - Fall General Chief Complaint: Fall Stated Complaint: fall,ams Time Seen by Provider: 07/10/24 18:05 History of Present Illness HPI Narrative: 80-year-old female present to the emergency department for evaluation for increased drooling after having a fall approximately 3 weeks ago. Patient denies any complaints. Related Data Home Medications Medication Instructions Recorded Confirmed Calcium 600 + D(3) 1 tab-cap PO DAILY 08/22/19 04/15/24 magnesium 30 mg tablet 30 mg PO DAILY 06/12/21 04/15/24 hydrochlorothiazide 12.5 mg tablet 12.5 mg PO DAILY 07/05/23 04/15/24 nitrofurantoin macrocrystal 50 mg 50 mg PO .COMPLEX 04/15/24 04/15/24 capsule Allergies Allergy/AdvReac Type Severity Reaction Status Date / Time Sulfa (Sulfonamide Allergy Unknown Unknown Verified 06/18/24 19:59 Antibiotics) tobramycin Allergy Unknown Unknown Verified 06/18/24 19:59 Review of Systems Review of Systems: All systems reviewed & are unremarkable except as noted in HPI and below PMFSH Past Medical History Medical History Acute confusion Acute urinary tract infection Atrial flutter by electrocardiogram Body mass index (bmi) 32.0-32.9, adult (06/17/19) Cervicalgia Chronic low back pain with sciatica COVID Depression Diverticulitis Dry skin Encounter for long-term (current) use of other medications Encounter for surgical aftercare following surgery on the skin and subcutaneous tissue Enteritis Epidermal cyst Hand paresthesia Herniated disc Hypertension Hypertension secondary to endocrine disorders IGT (impaired glucose tolerance) Memory deficit following unspecified cerebrovascular disease Obesity Osteoarthritis of knee, unspecified Post-inflammatory scarring Right-sided thoracic back pain Skin lesion of lower extremity (~11/2019) Urinary tract infection UTI (urinary tract infection) Wound infection following procedure Surgical History Surgical History H/O hernia repair 1995 H/O: hysterectomy 1994 Family History Family History Sibling Family history of diabetes mellitus in first degree relative Family history of coronary artery disease Family history of malignant neoplasm of breast in first degree relative Family history of malignant neoplasm of kidney Patient's brother is Father Family history of coronary artery disease Mother Family history of coronary artery disease Social History Social History Social History: Smoking packs per day: 0.5 Smoking cigarettes per day: 10.0 Years smoked: 70 Smoking pack-years: 35.00 Smoking status: Current every day smoker Tobacco type: cigarettes Second hand tobacco smoke exposure: Yes Alcohol intake: never Substance use: never Substance use type: does not use Lack of Transportation: No Lack of Food: Never True Current Housing: I Have Housing Concerned About Future Housing: No Difficulty Paying Gas/Electric Bills: No Difficulty Paying for Meds: No Currently Unemployed: No Education: High School Diploma/GED Difficulty w/ Childcare or Family Care: No Living arrangements: assisted living Additional living arrangements comments: Resides at [facility] (since 06/29/23) Spiritual care concerns: No (Lutheran) Exam Narrative: APPEARANCE: Well appearing, no pain, no distress, well-nourished. HEAD: normocephalic, ecchymosis to right face. EYES: PERRLA/EOMI, conjunctivae clear. NOSE: Normal no drainage EARS:TMS clear with good light reflex. THROAT: Pharynx clear, no exudate. Mouth: Patient does have some drooling but is able to handle her secretions NECK: Supple. No adenopathy, no masses. RESPIRATORY: Airway patent, respirations nonlabored. Clear to auscultation bilaterally, no rales, r
--- NOTE | 2024-07-10 19:59 | PC.NURSE ---
called pt son at this time to update on status of pt
--- NOTE | 2024-07-10 20:08 | PC.NURSE ---
spoke with nurse at [facility] who stated they will not allow patient to return to their facility. Informed nurse that they have to give the family 24 hours notice. Spoke with patients son Johan who stated that he was not given notice that care facility was not able to continue care. Johan states he will call facility and try to straighten things out and call back
[2024-07-10 20:09] VITALS: BP 148/69; PULSE 69; RESP 21; O2SAT 98
[2024-07-10 20:30] VITALS: BP 116/97; PULSE 77; RESP 18; TEMP 36.6; O2SAT 98
== END 2024-07-10 21:31 ==
PROVIDERS: Emergency Provider Emergency Medicine; PCP Nurse Practitioner
DX: S40.012A Contusion of left shoulder, initial encounter (principal); S00.83XA Contusion of other part of head, initial encounter; W19.XXXA Unspecified fall, initial encounter; I10 Essential (primary) hypertension; F17.210 Nicotine dependence, cigarettes, uncomplicated
CPT/HCPCS: 70450; 70486; 72125; 72192; 73030; 99284